=== PATIENT | male | born 1940 | race Caucasian/White ===

== ENCOUNTER 2018-11-26 08:34 | Emergency (ER) | payer OTHER ==
[2018-11-26] MEDS ORDERED: Sodium Chloride 0.9% 1,000 ML IV ONE (09:03)
[2018-11-26] MEDS ORDERED: Sodium Chloride 0.9% 2.5 ML Syringe FLUSH PRN (09:03)
[2018-11-26] MEDS ORDERED: Sodium Chloride 0.9% 10 ML Syringe FLUSH PRN (09:03)
--- NOTE | 2018-11-26 10:43 | CT ---
CT of the abdomen and pelvis without contrast. HISTORY: Pain TECHNIQUE: Axial CT images were obtained of the abdomen and pelvis without contrast. Coronal and sagittal reconstructions obtained. FINDINGS: There is a tiny 4 mm nodule within the perihilar right lower lobe. This could be followed up on subsequent imaging. The liver, spleen, adrenal glands, and pancreas appear unremarkable for noncontrast examination. The gallbladder appears normal. There is no bulky retroperitoneal lymphadenopathy. No abdominal ascites. There are no calcifications noted within the kidneys or along the courses of the ureters bilaterally. Renal cortical cysts. Aortic vascular calcifications are noted. There are borderline loops of small bowel noted however there is extensive callus and stool within the colon and rectum. The appendix is enlarged however gas-filled. There is stranding and a trace fluid within the right lower quadrant. Cecal wall thickening is noted. Moderate diverticulosis without evidence of diverticulitis. Anastomosis changes noted within the rectal region. There is no bulky pelvic lymphadenopathy. There is a trace free air noted. The urinary bladder appears normal. The visualized osseous structures appear normal. IMPRESSION: 1. The appendix is enlarged and heterogeneous small amount of free air and free fluid within the right lower quadrant. However the appendix is not fluid-filled. There is also moderate thickening of the adjacent cecal talbert. This either represents ruptured appendicitis versus an inflammatory/neoplastic process within the cecum with adjacent reactive changes and perforation. 2. Mildly prominent loops of small bowel, most likely representing an ileus versus mild partial obstruction. 3. Diverticulosis without evidence of diverticulitis.
[2018-11-26] MEDS ORDERED: Piperacillin/Tazobactam 3.375 GM in Sodium Chloride 0.9% 50 ML IV ONE (11:26)
--- NOTE | 2018-11-26 13:08 | EDM.PDOC ---
ED HPI GENERAL MEDICAL PROBLEM - General Chief Complaint: Abdominal Pain Stated Complaint: SICK Time Seen by Provider: 11/26/18 08:47 Source of Information: Reports: Patient History Limitations: Reports: No Limitations - History of Present Illness INITIAL COMMENTS - FREE TEXT/NARRATIVE: LHistory of present illness: []Patient has had 2 days of abdominal pain, vomiting and bloating. He denies any fevers, chills, diarrhea or any other pain. Patient is 4 months post op from abdominal surgery,, patient states his colon was fused with his bladder. He also states that they did a colonoscopy and biopsy 2 polyps which were benign. He is followed by Dr. Etienne at [facility]. Review of systems: As per history of present illness and below otherwise all systems reviewed and negative. Past medical history: As per history of present illness and as reviewed below otherwise noncontributory. Surgical history: As per history of present illness and as reviewed below otherwise noncontributory. Social history: No reported history of drug or alcohol abuse. Family history: As per history of present illness and as reviewed below otherwise noncontributory. Physical exam: General: Well developed, well nourished in NAD HEENT: Atraumatic, normocephalic, pupils reactive, negative for conjunctival pallor or scleral icterus, mucous membranes moist, throat clear, neck supple, nontender, trachea midline. Lungs: Clear to auscultation, breath sounds equal bilaterally, chest nontender. Heart: S1S2, regular, negative for clicks, rubs, or JVD. Abdomen: NABS, tympanitic to percussion Soft, nondistended, tender no rebound or guarding Negative for masses or hepatosplenomegaly. Negative for costovertebral tenderness. Pelvis: Stable nontender. Genitourinary: Deferred. Rectal: Deferred. Extremities: Atraumatic, negative for cords or calf pain. Neurovascular unremarkable. Neuro: Awake, alert, oriented. Cranial nerves II through XII unremarkable. Cerebellum unremarkable. Motor and sensory unremarkable throughout. Exam nonfocal. Skin:warm and dry Diagnostics: CBC, chemistry, blood cultures lipase, CT abdomen and pelvis Therapeutics: IV hydration, Zosyn ED Course: Dr. Anne was consulted and recommended transfer to Dr. Etienne Impression: Abdominal hollow viscus perforation Prescriptions: None Plan: Dr. Etienne accepts patient to transfer as a direct admit to hospital in [facility] Definitive disposition and diagnosis as appropriate pending reevaluation and review of above. lower abdominal Pain Score (Numeric/FACES): 5 - Related Data Allergies Allergy/AdvReac Type Severity Reaction Status Date / Time No Known Allergies Allergy Verified 11/26/18 08:41 Home Meds: Home Meds Aspirin 81 mg PO DAILY 11/26/18 [History] Hydrochlorothiazide [Microzide] 12.5 mg PO DAILY 11/26/18 [History] Losartan [Cozaar] 50 mg PO DAILY 11/26/18 [History] Metoprolol Tartrate 25 mg PO DAILY 11/26/18 [History] atorvaSTATin [Lipitor] 20 mg PO DAILY 11/26/18 [History] Past Medical History Cardiovascular History: Reports: High Cholesterol, Hypertension, PA Gastrointestinal History: Reports: Other (See Below) Other Gastrointestinal History: Colon Resection - Past Surgical History Cardiovascular Surgical History: Reports: Coronary Artery Bypass, Valve Replacement GI Surgical History: Reports: Colon Social & Family History - Family History Family Medical History: Noncontributory - Tobacco Use Smoking Status *Q: Never Smoker - Recreational Drug Use Recreational Drug Use: No ED ROS GENERAL - Review of Systems Review Of Systems: ROS reveals no pertinent complaints other than HPI. ED EXAM, GI/ABD - Physical Exam Exam: See Below (See history of present illness) Course - Vital Signs Last Recorded V/S: Last Vital Signs Temp 98.0 F 11/26/18 13:01 Pulse 87 11/26/18 13:01 Resp 16 11/26/18 13:01 BP 124/78 11/26/18 13:01 Pulse Ox 93 L 11/26/18 13:01 - Orders/Labs/Meds Orders: Active Orders 24 hr Category Date Time Status CULTURE BLOOD [BC] Stat Lab 11/26/18 11:51 Received CULTURE BLOOD [BC] Stat Lab 11/26/18 12:01 Received Sodium Chloride 0.9% [Saline Flush] Med 11/26/18 09:03 Active 10 ml FLUSH ASDIRECTED PRN Sodium Chloride 0.9% [Saline Flush] Med 11/26/18 09:03 Active 2.5 ml FLUSH ASDIRECTED PRN Blood Culture x2 Reflex Set [OM.PC] Stat Oth 11/26/18 11:44 Ordered Blood Culture x2 Reflex Set [OM.PC] Stat Ot 11/26/18 11:44 Ordered Saline Lock Insert [OM.PC] Stat Ot 11/26/18 09:02 Ordered Medication Orders Sodium Chloride (Saline Flush) 10 ml FLUSH ASDIRECTED PRN PRN Reason: Keep Vein Open Last Admin: 11/26/18 09:19 Dose: 10 ml Sodium Chloride (Saline Flush) 2.5 ml FLUSH ASDIRECTED PRN PRN Reason: Keep Vein Open Last Admin: 11/26/18 09:19 Dose: 2.5 ml Labs: Laboratory Tests 11/26/18 11/26/18 11/26/18 Range/Units 09:18 09:18 09:41 WBC 20.95 H (4.0-11.0) K/uL RBC 5.27 (4.50-5.90) M/uL Hgb 15.3 (13.0-17.0) g/dL Hct 44.6 (38.0-50.0) % MCV 84.6 (80.0-98.0) fL MCH 29.0 (27.0-32.0) pg MCHC 34.3 (31.0-37.0) g/dL RDW Std Deviation 43.6 (28.0-62.0) fl RDW Coeff of Trini 14 (11.0-15.0) % Plt Count 227 (150-400) K/uL MPV 10.30 (7.40-12.00) fL Neut % (Auto) 92.0 H (48.0-80.0) % Lymph % (Auto) 2.8 L (16.0-40.0) % [place] % (Auto) 5.2 (0.0-15.0) % Eos % (Auto) 0.0 (0.0-7.0) % Baso % (Auto) 0.0 (0.0-1.5) % Neut # (Auto) 19.3 H (1.4-5.7) K/uL Lymph # (Auto) 0.6 (0.6-2.4) K/uL [place] # (Auto) 1.1 H (0.0-0.8) K/uL Eos # (Auto) 0.0 (0.0-0.7) K/uL Baso # (Auto) 0.0 (0.0-0.1) K/uL Nucleated RBC % 0.0 /100WBC Nucleated RBCs # 0 K/uL Lactate 2.0 (0.20-2.00) mmol/L Sodium 138 (136-148) mmol/L Potassium 4.1 (3.5-5.1) mmol/L Chloride 101 (98-107) mmol/L Carbon Dioxide 24.0 (21.0-32.0) mmol/L BUN 37 H (7.0-18.0) mg/dL Creatinine 2.2 H (0.8-1.3) mg/dL Est Cr Clr Drug Dosing 26.29 mL/min Estimated GFR (MDRD) 29.2 ml/min Glucose 150 H (74-106) mg/dL Calcium 9.7 (8.5-10.1) mg/dL Total Bilirubin 1.0 (0.2-1.0) mg/dL AST 16 (15-37) IU/L ALT 12 L (14-63) IU/L Alkaline Phosphatase 98 (46-116) U/L Total Protein 8.5 H (6.4-8.2) g/dL Albumin 3.9 (3.4-5.0) g/dL Globulin 4.6 H (2.6-4.0) g/dL Albumin/Globulin Ratio 0.9 (0.9-1.6) Meds: Medications Generic Name Dose Route Start Last Admin Trade Name Freq PRN Reason Stop Dose Admin Sodium Chloride 10 ml 11/26/18 09:03 11/26/18 09:19 Saline Flush FLUSH 10 ml ASDIRECTED PRN Administration Keep Vein Open Sodium Chloride 2.5 ml 11/26/18 09:03 11/26/18 09:19 Saline Flush FLUSH 2.5 ml ASDIRECTED PRN Administration Keep Vein Open Discontinued Medications Generic Name Dose Route Start Last Admin Trade Name Freq PRN Reason Stop Dose Admin Sodium Chloride 1,000 mls @ 999 mls/hr 11/26/18 09:03 11/26/18 09:19 Normal Saline IV 11/26/18 10:03 999 mls/hr .Bolus ONE Administration Piperacillin Sod/Tazobactam 50 mls @ 100 mls/hr 11/26/18 11:26 11/26/18 12:06 Sod 3.375 gm/ Sodium Chloride IV 11/26/18 11:55 100 mls/hr ONETIME ONE Administration Departure - Departure Time of Disposition: 13:08 Disposition: DC/Tfer to Acute Hospital 02 Condition: Good, Fair Clinical Impression: Large bowel perforation - Discharge Information *PRESCRIPTION DRUG MONITORING PROGRAM REVIEWED*: No *COPY OF PRESCRIPTION DRUG MONITORING REPORT IN PATIENT TRINY: No Referrals: PCP,Unknown [Primary Care Provider] - Additional Instructions: The following information is given to patients seen in the emergency department who are being discharged to home. This information is to outline your options for follow-up care. We provide all patients seen in our emergency department with a follow-up referral. The need for follow-up, as well as the timing and circumstances, are variable depending upon the specifics of your emergency department visit. If you don't have a primary care physician on staff, we will provide you with a referral. We always advise you to contact your personal physician following an emergency department visit to inform them of the circumstance of the visit and for follow-up with them and/or the need for any referrals to a consulting specialist. The emergency department will also refer you to a specialist when appropriate. This referral assures that you have the opportunity for follow-up care with a specialist. All of these measure are taken in an effort to provide you with optimal care, which includes your follow-up. Under all circumstances we always encourage you to contact your private physician who remains a resource for coordinating your care. When calling for follow-up care, please make the office aware that this follow-up is from your recent emergency room visit. If for any reason you are refused follow-up, please contact the Emergency Department at and asked to speak to the emergency department charge nurse. - My Orders Last 24 Hours: My Active Orders 11/26/18 09:02 Saline Lock Insert [OM.PC] Stat 11/26/18 09:03 Sodium Chloride 0.9% [Saline Flush] 10 ml FLUSH ASDIRECTED PRN Sodium Chloride 0.9% [Saline Flush] 2.5 ml FLUSH ASDIRECTED PRN 11/26/18 11:44 Blood Culture x2 Reflex Set [OM.PC] Stat Blood Culture x2 Reflex Set [OM.PC] Stat 11/26/18 11:51 CULTURE BLOOD [BC] Stat 11/26/18 12:01 CULTURE BLOOD [BC] Stat - Assessment/Plan Last 24 Hours: My Active Orders 11/26/18 09:02 Saline Lock Insert [OM.PC] Stat 11/26/18 09:03 Sodium Chloride 0.9% [Saline Flush] 10 ml FLUSH ASDIRECTED PRN Sodium Chloride 0.9% [Saline Flush] 2.5 ml FLUSH ASDIRECTED PRN 11/26/18 11:44 Blood Culture x2 Reflex Set [OM.PC] Stat Blood Culture x2 Reflex Set [OM.PC] Stat 11/26/18 11:51 CULTURE BLOOD [BC] Stat 11/26/18 12:01 CULTURE BLOOD [BC] Stat
--- NOTE | 2018-11-26 17:09 | PCM.SN ---
- Free Text/Narrative Note: pt seen, chart reviewed; consult dictated; [id number]
--- NOTE | 2018-11-26 23:16 | HP ---
DATE OF : 1940 PRIMARY CARE PHYSICIAN: Unknown PCP HISTORY OF PRESENT ILLNESS: The patient is 78 years old gentleman seen in emergency room for 2-day history of abdominal pain, nausea, vomiting, and bloating and CAT scan was done and showed to have some spotty free air and Surgery was then consulted. The patient remarked that he had surgery done with Dr. Beaevrs about 3 months ago. Documentation not available for the time being. 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 He is not aware what is going on and he stayed in the hospital there for 2 weeks. At home, he is not feeling good for the last couple of days and with mild abdominal pain and seen in the emergency room now. The patient remarked the abdominal pain sometimes to be very bad like 8/10 on the pain scale, but otherwise in general is only mild. ALLERGIES: Please refer to nursing for details. MEDICATIONS: Please refer to nursing for details.. PAST MEDICAL HISTORY: Significant for no diabetes, ND, CVA. The patient has hypertension and coronary artery disease status post valve placement. SURGICAL HISTORY: Knee surgery and heart valve placement. FAMILY HISTORY: Noncontributory. SOCIAL HISTORY: Has some alcohol use and former smoker. PHYSICAL EXAMINATION: GENERAL: A very pleasant gentleman, sitting in edge of bed and was able to take some steps pacing in the room and looked comfortable. Of note, no pain medication given. VITAL SIGNS: Temperature 98, heart rate is 87, blood pressure 124/78, and pulse of 93. HEENT: Normocephalic and atraumatic. Sclerae anicteric. LUNGS: Clear to auscultation. HEART: Regular rate and rhythm. ABDOMEN: Soft, nondistended. No pulsating tender midline abdominal structure. Minimal tenderness on the bilateral lower quadrant. No rebound tenderness. Diminished bowel sounds. LABORATORY DATA: White count 21, H and H is 15 and 45, platelets 227. Lactate is 2, BUN is 37, creatinine is 2.2, potassium is 4.1, glucose is 150. UA is not sent. CAT scan, appendix is enlarged with air and not fluid filled and moderate thickening in adjacent cecal wall, inflammatory, worsened neoplastic process, mildly prominent loop of small bowel, diverticulosis. IMPRESSION: There is some micro-spotting of free air. With dilated appendix, highly doubt this is a perforated appendicitis and the patient does have history of perforated diverticulitis and also with history of a colovesical fistula and underwent surgery with Dr. Beavers for 6-1/2 hours per family member 3 months ago. Operative report is not available. With thickened cecal wall concerned this is more than just inflammatory or neoplastic process of the cecum. With the patient's history of heart valve replacement and history of smoking and 3 months into a big surgery, the patient probably will be on ventilator after surgery and due to the patient's interest to be serviced at a higher level facility, and at the same time family member who is a friend of mine, the daughter strongly request to have the patient transferred back to Dr. Beavers for further management. I agree with patient's clinical situation and presentation. The patient probably would benefit to be in a higher level tertiary care or academics center rather than a critical access hospital as we are. Thanks for the consult and care of this pleasant gentleman. MARIAMA / VANITA /[id number]
== END 2018-11-26 13:38 ==
LOC: MW.ED 08:34
DX: K63.1 Perforation of intestine (nontraumatic) (principal); E78.00 Pure hypercholesterolemia, unspecified; I10 Essential (primary) hypertension; I25.2 Old myocardial infarction; Z95.1 Presence of aortocoronary bypass graft; Z95.4 Presence of other heart-valve replacement; Z79.82 Long term (current) use of aspirin; Z79.899 Other long term (current) drug therapy
CPT/HCPCS: 36415; 74176; 80053; 83605; 85025; 87040; 96361; 96365; 99285; J2543; J7040; J7050

== ENCOUNTER 2021-03-26 05:10 | Emergency (ER) | payer MEDICARE ==
[2021-03-26] MEDS ORDERED: Sodium Chloride 0.9% 2.5 ML Syringe FLUSH PRN (06:03)
[2021-03-26] MEDS ORDERED: Sodium Chloride 0.9% 10 ML Syringe FLUSH PRN (06:03)
--- NOTE | 2021-03-26 06:03 | EDM.PDOC ---
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 Beavers approximately 2 and half years ago, enlarged prostate, no history of renal cell cancer, colon cancer, prostate cancer, or other cancers, who presents to the ER today secondary to noticing hematuria times this morning. Patient denies any recent fevers, shakes, chills, nausea, vomiting, diarrhea. Patient reports he has had dysuria and frequency for approximately 1 to 2 weeks. Patient denies any melena or bright red blood per rectum. Patient reports normal p.o. intake. Patient denies any bruising to his skin. Patient denies any bleeding from his gums. Patient denies any cough cold or rhinorrhea. Patient denies any recent falls or trauma. Patient denies any pain to his flanks. Patient reports that he feels fullness in his suprapubic region. Review of systems: As per history of present illness and below otherwise all systems reviewed and negative. Past medical history: As per history of present illness and as reviewed below otherwise noncontributory. Surgical history: As per history of present illness and as reviewed below otherwise noncontributory. Social history: No reported history of drug abuse. Family history: As per history of present illness and as reviewed below otherwise noncontributory. Physical exam: This patient was seen and evaluated during the 2019 SARS-CoV-2 novel coronavirus pandemic period. Community viral transmission is ongoing at time of this encounter and the emergency department is operating under pandemic response procedures. Constitutional: Patient is oriented to person, place, and time. Appears well- developed and well-nourished. No distress. HEENT: Moist mucous membranes Head: Normocephalic and atraumatic Eyes: Right eye exhibits no discharge. Left eye exhibits no discharge. No scleral icterus Neck: Normal range of motion. No tracheal deviation present. Cardiovascular: Normal rate and regular rhythm. Pulmonary: Effort normal, no respiratory distress. Abdominal: No distention Musculoskeletal: Normal range of motion Neurologic: Alert and oriented to person, place and time. Skin: [place], warm and dry. Psychiatric: Normal mood and affect. Behavior is normal. Judgment and thought content normal. Nursing note and vital signs have been reviewed Diagnostics: [] Therapeutics: [] Assessment and plan: This is an 81-year-old gentleman with a history of a colovesicular fistula approximately 2-1/2 years ago that was treated with bowel resection who presents ER today secondary to gross hematuria that started this morning. Patient reports that he does have a history significant for an enlarged prostate but is never had episodes of gross hematuria in the past. Patient is not on any anticoagulation therapy. Patient has had UTI symptoms for approximately 1 to 2 weeks prior to the hematuria. Patient denies signs or symptoms that would be consistent with renal colic. Etiology of patient's symptoms are unclear and may be related to bladder AVM, bladder cancer, complications from his colovesicular fistula repair, renal cell CA, prostate CA. Patient will have a three-way Melara catheter placed and irrigated to clear. We will obtain a CBC, CMP, INR, urinalysis. Patient will get a CT scan of his abdomen pelvis with IV contrast to further evaluate his urinary structures. At this time, the patient is clinically and hemodynamically stable. Definitive disposition and diagnosis as appropriate pending reevaluation and review of above. lower back Pain Score (Numeric/FACES): 3 - Related Data Allergies Allergy/AdvReac Type Severity Reaction Status Date / Time No Known Allergies Allergy Verified 03/26/21 05:23 Home Meds: Home Meds Aspirin 81 mg PO DAILY 11/26/18 [History] Losartan [Cozaar] 50 mg PO DAILY 11/26/18 [History] Metoprolol Tartrate 25 mg PO DAILY 11/26/18 [History] atorvaSTATin [Lipitor] 20 mg PO DAILY 11/26/18 [History] hydroCHLOROthiazide [Microzide] 12.5 mg PO DAILY 11/26/18 [History] Past Medical History HEENT History: Reports: None Cardiovascular History: Reports: High Cholesterol, Hypertension, [place] Respiratory History: Reports: None Gastrointestinal History: Reports: Other (See Below) Other Gastrointestinal History: Colon Resection Genitourinary History: Reports: None Musculoskeletal History: Reports: None Neurological History: Reports: None Psychiatric History: Reports: None Endocrine/Metabolic History: Reports: None Insulin Pump Model and Software Designer: None Hematologic History: Reports: None Immunologic History: Reports: None Oncologic (Cancer) History: Reports: None Dermatologic History: Reports: None - Infectious Disease History Infectious Disease History: Reports: None - Past Surgical History Head Surgeries/Procedures: Reports: None Cardiovascular Surgical History: Reports: Coronary Artery Bypass, Valve Replacement GI Surgical History: Reports: Colon Social & Family History - Family History Family Medical History: No Pertinent Family History - Caffeine Use Caffeine Use: Reports: None - Recreational Drug Use Recreational Drug Use: No ED ROS GENERAL - Review of Systems Review Of Systems: See Below ED EXAM, GENERAL - Physical Exam Exam: See Below Departure - Departure Disposition: DC/Tfer to Acute Hospital 02 Clinical Impression: Hyponatremia Hematuria Qualifiers: Hematuria type: gross Qualified Code(s): R31.0 - Gross hematuria - Discharge Information Referrals: PCP,None [Primary Care Provider] - Forms: ED Department Discharge <Eric Shelley - Last Filed: 03/26/21 08:36> Course - Vital Signs Last Recorded V/S: Last Vital Signs Temp 97.8 F 03/26/21 05:23 Pulse 68 03/26/21 06:45 Resp 18 03/26/21 06:45 BP 118/66 03/26/21 06:45 Pulse Ox 97 03/26/21 06:45 - Orders/Labs/Meds Orders: Active Orders 24 hr Category Date Time Status Bladder Irrigation [RC] STAT Care 03/26/21 06:05 Active Insert Melara Catheter [Insert Urinary Catheter] [OM.PC] Care 03/26/21 06:15 Ordered Q24H Urinary Catheter Assessment [RC] ASDIRECTED Care 03/26/21 06:07 Active CORONAVIRUS COVID-19 JADIEL [MOLEC] Stat Lab 03/26/21 07:38 Received Lidocaine 2% [Xylocaine 2% Viscous] Med 03/26/21 06:20 Active 15 ml PO ASDIRECTED PRN Sodium Chloride 0.9% [Saline Flush] Med 03/26/21 06:03 Active 10 ml FLUSH ASDIRECTED PRN Sodium Chloride 0.9% [Saline Flush] Med 03/26/21 06:03 Active 2.5 ml FLUSH ASDIRECTED PRN Saline Lock Insert [OM.PC] Stat Oth 03/26/21 06:03 Ordered Medication Orders Lidocaine HCl (Lidocaine 2% Viscous Solution 15 Ml Cup) 15 ml PO ASDIRECTED PRN PRN Reason: Breakthrough Pain Last Admin: 03/26/21 06:42 Dose: 15 ml Documented by: BRINDA Sodium Chloride (Sodium Chloride 0.9% 10 Ml Syringe) 10 ml FLUSH ASDIRECTED PRN PRN Reason: Keep Vein Open Last Admin: 03/26/21 07:27 Dose: 10 ml Documented by: JOVITA Sodium Chloride (Sodium Chloride 0.9% 2.5 Ml Syringe) 2.5 ml FLUSH ASDIRECTED PRN PRN Reason: Keep Vein Open Last Admin: 03/26/21 07:27 Dose: 2.5 ml Documented by: JOVITA Labs: Laboratory Tests 03/26/21 03/26/21 03/26/21 Range/Units 05:55 05:55 05:55 WBC 12.12 H (4.0-11.0) K/uL RBC 3.92 L (4.50-5.90) M/uL Hgb 11.7 L (13.0-17.0) g/dL Hct 32.2 L (38.0-50.0) % MCV 82.1 (80.0-98.0) fL MCH 29.8 (27.0-32.0) pg MCHC 36.3 (31.0-37.0) g/dL RDW Std Deviation 37.6 (28.0-62.0) fl RDW Coeff of Trini 13 (11.0-15.0) % Plt Count 250 (150-400) K/uL MPV 9.90 (7.40-12.00) fL Neut % (Auto) 79.5 (48.0-80.0) % Lymph % (Auto) 10.6 L (16.0-40.0) % [place] % (Auto) 7.0 (0.0-15.0) % Eos % (Auto) 2.7 (0.0-7.0) % Baso % (Auto) 0.2 (0.0-1.5) % Neut # (Auto) 9.6 H (1.4-5.7) K/uL Lymph # (Auto) 1.3 (0.6-2.4) K/uL [place] # (Auto) 0.9 H (0.0-0.8) K/uL Eos # (Auto) 0.3 (0.0-0.7) K/uL Baso # (Auto) 0.0 (0.0-0.1) K/uL Nucleated RBC % 0.0 /100WBC Nucleated RBCs # 0 K/uL INR 1.05 APTT 28.5 (18.6-31.3) SEC Sodium 122 L (136-148) mmol/L Potassium 3.8 (3.5-5.1) mmol/L Chloride 89 L (98-107) mmol/L Carbon Dioxide 22.6 (21.0-32.0) mmol/L BUN 16 (7.0-18.0) mg/dL Creatinine 1.5 H (0.8-1.3) mg/dL Est Cr Clr Drug Dosing 36.72 mL/min Estimated GFR (MDRD) 45.0 ml/min Glucose 114 H (74-106) mg/dL Calcium 7.8 L (8.5-10.1) mg/dL Total Bilirubin 0.7 (0.2-1.0) mg/dL AST 22 (15-37) IU/L ALT 18 (14-63) IU/L Alkaline Phosphatase 98 (46-116) U/L Total Protein 6.8 (6.4-8.2) g/dL Albumin 3.7 (3.4-5.0) g/dL Globulin 3.1 (2.6-4.0) g/dL Albumin/Globulin Ratio 1.2 (0.9-1.6) Urine Color Urine Appearance Urine pH (5.0-8.0) Ur Specific [place] (1.001-1.035) Urine Protein (NEGATIVE) mg/dL Urine Glucose (UA) (NEGATIVE) mg/dL Urine Ketones (NEGATIVE) mg/dL Urine Occult Blood (NEGATIVE) Urine Nitrite (NEGATIVE) Urine Bilirubin (NEGATIVE) Urine Urobilinogen (<2.0) EU/dL Ur Leukocyte Esterase (NEGATIVE) Urine RBC (0-2/HPF) Urine WBC (0-5/HPF) Ur Epithelial Cells (NONE-FEW) Urine Bacteria (NEGATIVE) 03/26/21 Range/Units 06:30 WBC (4.0-11.0) K/uL RBC (4.50-5.90) M/uL Hgb (13.0-17.0) g/dL Hct (38.0-50.0) % MCV (80.0-98.0) fL MCH (27.0-32.0) pg MCHC (31.0-37.0) g/dL RDW Std Deviation (28.0-62.0) fl RDW Coeff of Trini (11.0-15.0) % Plt Count (150-400) K/uL MPV (7.40-12.00) fL Neut % (Auto) (48.0-80.0) % Lymph % (Auto) (16.0-40.0) % [place] % (Auto) (0.0-15.0) % Eos % (Auto) (0.0-7.0) % Baso % (Auto) (0.0-1.5) % Neut # (Auto) (1.4-5.7) K/uL Lymph # (Auto) (0.6-2.4) K/uL [place] # (Auto) (0.0-0.8) K/uL Eos # (Auto) (0.0-0.7) K/uL Baso # (Auto) (0.0-0.1) K/uL Nucleated RBC % /100WBC Nucleated RBCs # K/uL INR APTT (18.6-31.3) SEC Sodium (136-148) mmol/L Potassium (3.5-5.1) mmol/L Chloride (98-107) mmol/L Carbon Dioxide (21.0-32.0) mmol/L BUN (7.0-18.0) mg/dL Creatinine (0.8-1.3) mg/dL Est Cr Clr Drug Dosing mL/min Estimated GFR (MDRD) ml/min Glucose (74-106) mg/dL Calcium (8.5-10.1) mg/dL Total Bilirubin (0.2-1.0) mg/dL AST (15-37) IU/L ALT (14-63) IU/L Alkaline Phosphatase (46-116) U/L Total Protein (6.4-8.2) g/dL Albumin (3.4-5.0) g/dL Globulin (2.6-4.0) g/dL Albumin/Globulin Ratio (0.9-1.6) Urine Color RED Urine Appearance CLOUDY Urine pH 7.0 (5.0-8.0) Ur Specific [place] 1.020 (1.001-1.035) Urine Protein 100 H (NEGATIVE) mg/dL Urine Glucose (UA) NEGATIVE (NEGATIVE) mg/dL Urine Ketones NEGATIVE (NEGATIVE) mg/dL Urine Occult Blood LARGE H (NEGATIVE) Urine Nitrite NEGATIVE (NEGATIVE) Urine Bilirubin NEGATIVE (NEGATIVE) Urine Urobilinogen 0.2 (<2.0) EU/dL Ur Leukocyte Esterase SMALL H (NEGATIVE) Urine RBC TOO NUMEROUS TO CT (0-2/HPF) Urine WBC 0-2 (0-5/HPF) Ur Epithelial Cells RARE (NONE-FEW) Urine Bacteria FEW (NEGATIVE) Meds: Medications Generic Name Dose Route Start Last Admin Trade Name Macy PRN Reason Stop Dose Admin Lidocaine HCl 15 ml 03/26/21 06:20 03/26/21 06:42 Lidocaine 2% Viscous Solution 15 Ml Cup PO 15 ml ASDIRECTED PRN Administration Breakthrough Pain Sodium Chloride 10 ml 03/26/21 06:03 03/26/21 07:27 Sodium Chloride 0.9% 10 Ml Syringe FLUSH 10 ml ASDIRECTED PRN Administration Keep Vein Open Sodium Chloride 2.5 ml 03/26/21 06:03 03/26/21 07:27 Sodium Chloride 0.9% 2.5 Ml Syringe FLUSH 2.5 ml ASDIRECTED PRN Administration Keep Vein Open Discontinued Medications Generic Name Dose Route Start Last Admin Trade Name Macy PRN Reason Stop Dose Admin Sodium Chloride 1,000 mls @ 999 mls/hr 03/26/21 06:51 03/26/21 07:27 Normal Saline IV 03/26/21 07:51 999 mls/hr .Bolus ONE Administration Iopamidol 60 ml 03/26/21 07:13 03/26/21 07:13 Iopamidol 755 Mg/Ml 100 Ml Bottle IVPUSH 03/26/21 07:14 60 ml ONETIME STA Administration Lidocaine HCl Confirm 03/26/21 06:20 03/26/21 06:33 Lidocaine 2% Viscous Solution 15 Ml Cup Administered 03/26/21 06:21 Not Given Dose 15 ml .ROUTE .STK-MED ONE - Re-Assessments/Exams Free Text/Narrative Re-Assessment/Exam: 03/26/21 07:52 Labs show hyponatremia, Cr 1.5, no evidence UTI. Three-way catheter placed for irrigation. Will reach out to transfer center for transfer of care to facility with urology coverage for management of hyponatremia, gross hematuria, and urinary retention. I did try [facility] who unfortunately doesn't have inpatient urology coverage. 03/26/21 08:30 Dr. Sims agrees to consult (urology, [place]). Will reach out to ED physician for ED-ED transfer. 03/26/21 08:35 Dr. Friend ED physician agrees to accept Departure - Departure Time of Disposition: 08:36 Condition: Good Sepsis Event Note (ED) - Focused Exam Vital Signs: Vital Signs Temp Pulse Resp BP Pulse Ox 03/26/21 06:45 68 18 118/66 97 03/26/21 05:23 97.8 F 78 18 152/76 H 97
[2021-03-26] MEDS ORDERED: Lidocaine 2% Viscous Solution 15 ML Cup PO PRN (06:20)
[2021-03-26] MEDS ORDERED: Lidocaine 2% Viscous Solution 15 ML Cup ONE (06:20)
[2021-03-26 06:33] LABS: CARBON DIOXIDE,CO2 22.6 mmol/L (21.0-32.0); POTASSIUM,K 3.8 mmol/L (3.5-5.1)
[2021-03-26] MEDS ORDERED: Sodium Chloride 0.9% 1,000 ML IV ONE (06:51)
[2021-03-26] MEDS ORDERED: Iopamidol 755 Mg/ML 100 ML Bottle IVPUSH STA (07:13)
--- NOTE | 2021-03-26 07:38 | CT ---
HISTORY: Gross hematuria. Prior are colovesical fistula. COMPARISON: 11/26/2018. TECHNIQUE: CT of the abdomen and pelvis. 60 cc of [id number] IV. Coronal/sagittal reconstruction images. FINDINGS: Lung bases: Partially visualized sternotomy changes on the darkroom technician image. There is no pleural or pericardial effusion. There is no acute airspace disease. Interstitial type opacities are present at the right lung base, likely related to fibrosis. There is no basilar pneumothorax. The findings are seen at the contralateral left lung base. Abdomen/pelvis: The liver morphology is non cirrhotic. There is no perihepatic ascites. No radiopaque gallstone. No splenomegaly. No adrenal mass. Benign left renal cyst. There is a larger right renal cyst, which measures 5.5 cm, lower pole, right kidney, image 75. There is no pancreatic mass or glandular atrophy. The anterior para renal space is clear. There is a Melara catheter in the urinary bladder, with hyperdensities within the bladder, consistent with emerge. There is fat stranding in the perivesical fat/extraperitoneal space of [place]. Anastomotic sutures are present about the lower sigmoid colon. There is extensive diverticulosis. There is no evidence for diverticulitis. There is no mural thickening. There is no mucosal hyper enhancement. Anastomotic sutures are also present in the cecum. There is no inguinal or pelvic sidewall lymphadenopathy. Degenerative calcific plaque and an abdominal aorta which appears aneurysmal, measuring up to 36 mm in transverse dimension. This contains mural thrombus and calcific plaque. The celiac axis, SMA, and JU are patent. The bone windows demonstrate degenerative arthrosis of the symphysis pubis. Degenerative disc disease in the lumbar spine, with endplate sclerosis and osteophytic spurring. There is a compression deformity at L2, which is new from 11/26/2018. Suggest correlation with physical exam findings. IMPRESSION: 1. Hyperdensity within the lumen of the urinary bladder, with fat stranding in the extraperitoneal space of [place]/perivesical fat. 2. This is consistent with the provided history of gross hematuria. Suggest correlation with direct visualization/cystoscopy. 3. There is no obstructive urolith, solid renal mass, delayed nephrogram, or perinephric fluid collection. 4. Colonic diverticulosis, but no evidence on CT for diverticulitis. 5. No bowel obstruction, pneumoperitoneum, or drainable fluid collection. Please note that all CT scans at this facility use dose modulation, iterative reconstruction, and/or weight-based dosing when appropriate to reduce radiation dose to as low as reasonably achievable. Dictated by Robert Larson MD @ 03/26/2021 7:36:18 AM (Electronically Signed)
== END 2021-03-26 09:36 ==
LOC: MW.ED 05:10
DX: R31.0 Gross hematuria (principal); E87.1 Hypo-osmolality and hyponatremia; E78.00 Pure hypercholesterolemia, unspecified; I10 Essential (primary) hypertension; I25.2 Old myocardial infarction; Z79.82 Long term (current) use of aspirin; Z79.899 Other long term (current) drug therapy
CPT/HCPCS: 51702; 74177; 80053; 81001; 85025; 85610; 85730; 99284; A9270; J7030; Q9967; U0002

== ENCOUNTER 2022-06-29 15:56 | Emergency (ER) | payer OTHER ==
[2022-06-29] MEDS ORDERED: Morphine 4 MG/ML Syringe IVPUSH ONE ×2 (17:10→20:35)
[2022-06-29] MEDS ORDERED: Lidocaine 5% 700 MG Patch TOP ONE (17:10)
[2022-06-29 17:58] LABS: CARBON DIOXIDE,CO2 29.6 mmol/L (21.0-32.0); POTASSIUM,K 3.6 mmol/L (3.5-5.1)
[2022-06-29] MEDS ORDERED: Lactated Ringers 1,000 ML IV ONE (18:07)
[2022-06-29] MEDS ORDERED: Morphine 4 MG/ML Syringe ONE (20:37)
[2022-06-29] MEDS ORDERED: Orphenadrine 60 MG/2 ML Inj IV ONE (20:53)
[2022-06-29] MEDS ORDERED: HYDROmorphone 1 MG/ML Syringe IVPUSH ONE (20:53)
[2022-06-29] MEDS ORDERED: Iopamidol 755 MG/ML 500 ML Multipack Bottle IVPUSH STA (22:12)
== END 2022-06-30 00:09 | disposition home or self-care (01) ==
LOC: MW.ED 15:56
DX: M54.6 Pain in thoracic spine (principal); E78.00 Pure hypercholesterolemia, unspecified; I10 Essential (primary) hypertension; I25.2 Old myocardial infarction; Z79.82 Long term (current) use of aspirin; Z79.899 Other long term (current) drug therapy
CPT/HCPCS: 36415; 71275; 74175; 80053; 84484; 85025; 85610; 85730; 96361; 96374; 96375; 96376; 99284; A9270; J1170; J2270; J2360; J7120; Q9967

== ENCOUNTER 2023-03-10 12:51 | Inpatient (IN) | payer OTHER, MEDICARE ==
[2023-03-10] MEDS ORDERED: Sodium Chloride 0.9% 2.5 ML Syringe FLUSH PRN ×2 (13:05→18:10)
[2023-03-10] MEDS ORDERED: Sodium Chloride 0.9% 10 ML Syringe FLUSH PRN ×2 (13:05→18:10)
[2023-03-10] MEDS ORDERED: Sodium Chloride 0.9% 1,000 ML IV ONE (13:22)
[2023-03-10] MEDS ORDERED: Ondansetron 4 MG/2 ML SDV IVPUSH ONE ×2 (13:22→14:11)
[2023-03-10 13:48] LABS: BASOPHILS PERCENT AUTO 0.1 % (0.0-1.5); EOSINOPHILS PERCENT AUTO 0.1 % (0.0-7.0); HEMATOCRIT 40.1 % (38.0-50.0); HEMOGLOBIN 14.3 g/dL (13.0-17.0); LYMPHOCYTES ABSOLUTE AUTO 0.8 K/uL (0.6-2.4); LYMPHOCYTES PERCENT AUTO 4.7 % (16.0-40.0); MEAN CORPUSCULAR HEMOGLOBIN 30.4 pg (27.0-32.0); MEAN CORPUSCULAR HGB CONC 35.7 g/dL (31.0-37.0); MEAN CORPUSCULAR VOLUME 85.1 fL (80.0-98.0); MONOCYTES ABSOLUTE AUTO 0.5 K/uL (0.0-0.8); MONOCYTES PERCENT AUTO 2.9 % (0.0-15.0); NEUTROPHILS ABSOLUTE AUTO 16.4 K/uL (1.4-5.7); NEUTROPHILS PERCENT AUTO 92.2 % (48.0-80.0); NRBC ABSOLUTE 0 K/uL; PLATELET COUNT,PLT 311 K/uL (150-400); RED BLOOD CELL COUNT 4.71 M/uL (4.50-5.90); WHITE BLOOD CELL COUNT,WBC 17.79 K/uL (4.0-11.0)
[2023-03-10 14:16] LABS: LACTIC ACID 1.6 mmol/L (0.4-2.0)
[2023-03-10 14:23] LABS: A/G RATIO 1.1 (0.9-1.6); ALANINE AMINOTRANSFERASE,ALT 19 IU/L (14-63); ALBUMIN 4.3 g/dL (3.4-5.0); ALKALINE PHOSPHATASE 92 U/L (46-116); ASPARTATE AMNIOTRANSFERASE,AST 34 IU/L (15-37); BILIRUBIN TOTAL 0.7 mg/dL (0.2-1.0); BLOOD UREA NITROGEN,BUN 23 mg/dL (7.0-18.0); CALCIUM 8.7 mg/dL (8.5-10.1); CARBON DIOXIDE,CO2 23.7 mmol/L (21.0-32.0); CHLORIDE,CL 92 mmol/L (98-107); CREATININE 2.5 mg/dL (0.8-1.3); GLUCOSE RANDOM 134 mg/dL (74-106); INR 1.01 (0.86-1.11); MAGNESIUM 2.8 mg/dL (1.8-2.4); POTASSIUM,K 4.2 mmol/L (3.5-5.1); PROTEIN TOTAL,TP 8.2 g/dL (6.4-8.2); SODIUM,NA 127 mmol/L (136-148); TSH ULTRASENSITIVE 0.95 uIU/mL (0.36-3.74)
[2023-03-10 14:24] LABS: ESTIMATED GFR 25 mL/min (>60); ETHANOL BLOOD MEDICAL < 3.0 mg/dL
[2023-03-10 15:44] LABS: APPEARANCE,URINE CLEAR; BILIRUBIN,URINE NEGATIVE (NEGATIVE); COLOR,URINE YELLOW; GLUCOSE,URINE NEGATIVE (NEGATIVE); KETONES,URINE NEGATIVE (NEGATIVE); LEUKOCYTE ESTERASE,URINE NEGATIVE (NEGATIVE); NITRITE,URINE NEGATIVE (NEGATIVE); OCCULT BLOOD,URINE MODERATE (NEGATIVE); PROTEIN,URINE TRACE mg/dL (NEGATIVE); UROBILINOGEN,URINE 0.2 EU/dL (<2.0)
[2023-03-10 15:56] LABS: BACTERIA,URINE FEW (NEGATIVE); EPITHELIAL CELLS,URINE FEW (NONE-FEW); RBC,URINE 15-25 (0-2/HPF); WBC,URINE 30-40 (0-5/HPF)
[2023-03-10] MEDS ORDERED: cefTRIAXone 1 GM in Sodium Chloride 0.9% 50 ML IV ONE (16:02)
[2023-03-10] MEDS ORDERED: Acetaminophen 325 MG Tab PO PRN (18:10)
[2023-03-10] MEDS ORDERED: Polyethylene Glycol 3350 Powder 17 GM Packet PO PRN (18:10)
[2023-03-10] MEDS ORDERED: Albuterol/Ipratropium 3.0-0.5 MG/3 ML Neb Soln NEB PRN (18:10)
[2023-03-10] MEDS ORDERED: Sodium Chloride 0.9% 20 ML SDV IV PRN (18:10)
[2023-03-10] MEDS ORDERED: Heparin Sodium 5,000 Units/ML Vial SUBCUT SCH (18:15)
[2023-03-10] MEDS ORDERED: Lactated Ringers 1,000 ML IV SCH (18:15)
[2023-03-10] MEDS ORDERED: Acetaminophen/oxyCODONE 325-5 MG Tab PO PRN (18:15)
[2023-03-10] MEDS: Heparin Sodium 5,000 Units/ML Vial SUBCUT SCH (18:51)
[2023-03-10] MEDS: Sodium Chloride 0.9% 1,000 ML IV SCH (18:59)
[2023-03-10] MEDS ORDERED: cefTRIAXone 2 GM in Sodium Chloride 0.9% 50 ML IV SCH (19:00)
[2023-03-10 21:35] LABS: CALCIUM 8.5 mg/dL (8.5-10.1); CARBON DIOXIDE,CO2 23.4 mmol/L (21.0-32.0); CREATININE 2.3 mg/dL (0.8-1.3); EST CRCL DRUG DOSING (CG) 23.15 mL/min
[2023-03-10] MEDS: Ondansetron 4 MG/2 ML SDV IVPUSH PRN (21:59)
[2023-03-11] MEDS: Sodium Chloride 0.9% 1,000 ML IV SCH (03:50)
[2023-03-11] MEDS: Ondansetron 4 MG/2 ML SDV IVPUSH PRN (03:59)
[2023-03-11] MEDS: Heparin Sodium 5,000 Units/ML Vial SUBCUT SCH (06:00)
[2023-03-11 06:13] LABS: BASOPHILS PERCENT AUTO 0.1 % (0.0-1.5); HEMATOCRIT 37.8 % (38.0-50.0); LYMPHOCYTES ABSOLUTE AUTO 0.6 K/uL (0.6-2.4); LYMPHOCYTES PERCENT AUTO 2.9 % (16.0-40.0); MEAN CORPUSCULAR HEMOGLOBIN 29.9 pg (27.0-32.0); MEAN CORPUSCULAR HGB CONC 34.4 g/dL (31.0-37.0); MEAN CORPUSCULAR VOLUME 86.9 fL (80.0-98.0); MONOCYTES ABSOLUTE AUTO 0.7 K/uL (0.0-0.8); MONOCYTES PERCENT AUTO 3.3 % (0.0-15.0); NEUTROPHILS ABSOLUTE AUTO 19.9 K/uL (1.4-5.7); NEUTROPHILS PERCENT AUTO 93.7 % (48.0-80.0); NRBC ABSOLUTE 0 K/uL; PLATELET COUNT,PLT 260 K/uL (150-400); RED BLOOD CELL COUNT 4.35 M/uL (4.50-5.90)
[2023-03-11 06:32] LABS: CALCIUM 8.5 mg/dL (8.5-10.1); CARBON DIOXIDE,CO2 22.5 mmol/L (21.0-32.0); CREATININE 2.1 mg/dL (0.8-1.3); EST CRCL DRUG DOSING (CG) 25.36 mL/min; MAGNESIUM 2.3 mg/dL (1.8-2.4)
[2023-03-11] MEDS ORDERED: Metoprolol Tartrate 50 MG Tab PO SCH (09:00)
[2023-03-11] MEDS: atorvaSTATin 40 MG Tab PO SCH (09:12)
[2023-03-11] MEDS: Clopidogrel 75 MG Tab PO SCH (09:13)
[2023-03-11] MEDS: Aspirin 81 MG Tab.Chew PO SCH (10:26)
[2023-03-11] MEDS ORDERED: Hydrochlorothiazide 12.5 MG Cap PO SCH (16:00)
[2023-03-11 18:33] LABS: BASOPHILS PERCENT AUTO 0.2 % (0.0-1.5); EOSINOPHILS PERCENT AUTO 0.2 % (0.0-7.0); HEMATOCRIT 36.3 % (38.0-50.0); HEMOGLOBIN 12.7 g/dL (13.0-17.0); LYMPHOCYTES ABSOLUTE AUTO 1.2 K/uL (0.6-2.4); LYMPHOCYTES PERCENT AUTO 5.1 % (16.0-40.0); MEAN CORPUSCULAR HEMOGLOBIN 30.5 pg (27.0-32.0); MEAN CORPUSCULAR VOLUME 87.3 fL (80.0-98.0); MONOCYTES ABSOLUTE AUTO 1.6 K/uL (0.0-0.8); MONOCYTES PERCENT AUTO 6.7 % (0.0-15.0); NEUTROPHILS ABSOLUTE AUTO 20.9 K/uL (1.4-5.7); NEUTROPHILS PERCENT AUTO 87.8 % (48.0-80.0); NRBC ABSOLUTE 0 K/uL; PLATELET COUNT,PLT 270 K/uL (150-400); RED BLOOD CELL COUNT 4.16 M/uL (4.50-5.90); WHITE BLOOD CELL COUNT,WBC 23.72 K/uL (4.0-11.0)
[2023-03-11] MEDS ORDERED: cefTRIAXone 2 GM in Sodium Chloride 0.9% 50 ML IV SCH (19:00)
[2023-03-11] MEDS ORDERED: Piperacillin/Tazobactam 3.375 GM in Sodium Chloride 0.9% 100 ML IV SCH (19:15)
[2023-03-11] MEDS: Piperacillin/Tazobactam 4.5 GM in Sodium Chloride 0.9% 100 ML IV SCH (19:52)
[2023-03-11] MEDS ORDERED: VANCOmycin 1.5 GM/300 ML 1.5 GM in Premix Bag 1 BAG IV ONE (20:00)
[2023-03-12] MEDS: Piperacillin/Tazobactam 4.5 GM in Sodium Chloride 0.9% 100 ML IV SCH (03:04)
[2023-03-12 05:51] LABS: BASOPHILS ABSOLUTE AUTO 0.1 K/uL (0.0-0.1); BASOPHILS PERCENT AUTO 0.3 % (0.0-1.5); EOSINOPHILS ABSOLUTE AUTO 0.1 K/uL (0.0-0.7); EOSINOPHILS PERCENT AUTO 0.7 % (0.0-7.0); HEMATOCRIT 36.6 % (38.0-50.0); HEMOGLOBIN 12.4 g/dL (13.0-17.0); LYMPHOCYTES ABSOLUTE AUTO 1.1 K/uL (0.6-2.4); LYMPHOCYTES PERCENT AUTO 5.2 % (16.0-40.0); MEAN CORPUSCULAR HEMOGLOBIN 29.5 pg (27.0-32.0); MEAN CORPUSCULAR HGB CONC 33.9 g/dL (31.0-37.0); MEAN CORPUSCULAR VOLUME 87.1 fL (80.0-98.0); MONOCYTES ABSOLUTE AUTO 1.2 K/uL (0.0-0.8); MONOCYTES PERCENT AUTO 5.5 % (0.0-15.0); NEUTROPHILS ABSOLUTE AUTO 18.8 K/uL (1.4-5.7); NEUTROPHILS PERCENT AUTO 88.3 % (48.0-80.0); NRBC ABSOLUTE 0 K/uL; PLATELET COUNT,PLT 260 K/uL (150-400); WHITE BLOOD CELL COUNT,WBC 21.31 K/uL (4.0-11.0)
[2023-03-12 06:18] LABS: CALCIUM 8.3 mg/dL (8.5-10.1); CARBON DIOXIDE,CO2 22.2 mmol/L (21.0-32.0); CREATININE 1.7 mg/dL (0.8-1.3); EST CRCL DRUG DOSING (CG) 31.32 mL/min
[2023-03-12] MEDS ORDERED: Acetaminophen/oxyCODONE 325-5 MG Tab PO PRN (07:00)
[2023-03-12] MEDS: Clopidogrel 75 MG Tab PO SCH (08:03)
[2023-03-12] MEDS: Losartan 50 MG Tab PO SCH (08:04)
[2023-03-12] MEDS: Aspirin 81 MG Tab.Chew PO SCH (08:05)
[2023-03-12] MEDS: atorvaSTATin 40 MG Tab PO SCH (08:05)
[2023-03-12] MEDS: Heparin Sodium 5,000 Units/ML Vial SUBCUT SCH ×2 (08:07→20:23)
[2023-03-12] MEDS: Piperacillin/Tazobactam 2.25 GM in Sodium Chloride 0.9% 50 ML IV SCH ×3 (11:02→22:45)
[2023-03-13] MEDS: Piperacillin/Tazobactam 2.25 GM in Sodium Chloride 0.9% 50 ML IV SCH (04:14)
[2023-03-13 05:38] LABS: BASOPHILS ABSOLUTE AUTO 0.1 K/uL (0.0-0.1); BASOPHILS PERCENT AUTO 0.4 % (0.0-1.5); EOSINOPHILS ABSOLUTE AUTO 0.2 K/uL (0.0-0.7); EOSINOPHILS PERCENT AUTO 1.6 % (0.0-7.0); HEMATOCRIT 34.8 % (38.0-50.0); HEMOGLOBIN 12.2 g/dL (13.0-17.0); LYMPHOCYTES ABSOLUTE AUTO 1.2 K/uL (0.6-2.4); LYMPHOCYTES PERCENT AUTO 8.2 % (16.0-40.0); MEAN CORPUSCULAR HEMOGLOBIN 30.2 pg (27.0-32.0); MEAN CORPUSCULAR HGB CONC 35.1 g/dL (31.0-37.0); MEAN CORPUSCULAR VOLUME 86.1 fL (80.0-98.0); MONOCYTES PERCENT AUTO 6.8 % (0.0-15.0); NEUTROPHILS ABSOLUTE AUTO 11.8 K/uL (1.4-5.7); NRBC ABSOLUTE 0 K/uL; PLATELET COUNT,PLT 243 K/uL (150-400); RED BLOOD CELL COUNT 4.04 M/uL (4.50-5.90); WHITE BLOOD CELL COUNT,WBC 14.26 K/uL (4.0-11.0)
[2023-03-13 06:02] LABS: CALCIUM 8.3 mg/dL (8.5-10.1); CREATININE 1.5 mg/dL (0.8-1.3); EST CRCL DRUG DOSING (CG) 35.5 mL/min; POTASSIUM,K 3.6 mmol/L (3.5-5.1)
[2023-03-13] MEDS: Heparin Sodium 5,000 Units/ML Vial SUBCUT SCH (07:57)
[2023-03-13] MEDS: Losartan 50 MG Tab PO SCH (08:00)
[2023-03-13] MEDS: atorvaSTATin 40 MG Tab PO SCH (08:00)
[2023-03-13] MEDS: Aspirin 81 MG Tab.Chew PO SCH (08:00)
[2023-03-13] MEDS: Clopidogrel 75 MG Tab PO SCH (08:02)
[2023-03-13] MEDS ORDERED: Finasteride 5 MG Tab PO SCH (09:00)
[2023-03-13] MEDS ORDERED: Ciprofloxacin 500 MG Tab PO SCH (09:15)
[2023-03-13] MEDS ORDERED: Piperacillin/Tazobactam 3.375 GM in Sodium Chloride 0.9% 100 ML IV SCH (11:00)
[2023-03-13] MEDS ORDERED: VANCOmycin 1.75 GM/350 ML 1.75 GM in Premix Bag 1 BAG IV SCH (12:00)
== END 2023-03-13 11:00 | disposition home health service (06) | DRG 690 ==
LOC: MW.ED 12:51 → MW.MS 17:04
PROVIDERS: ADMIT Family Medicine; ATTEND Family Medicine
DX: N10 Acute pyelonephritis (principal); N28.9 Disorder of kidney and ureter, unspecified; N30.01 Acute cystitis with hematuria; E86.0 Dehydration; I10 Essential (primary) hypertension; E87.1 Hypo-osmolality and hyponatremia; N17.9 Acute kidney failure, unspecified; N18.9 Chronic kidney disease, unspecified; Z95.4 Presence of other heart-valve replacement; I12.9 Hypertensive chronic kidney disease with stage 1 through stage 4 chronic kidney disease, or unspecified chronic kidney disease; I25.10 Atherosclerotic heart disease of native coronary artery without angina pectoris; E78.00 Pure hypercholesterolemia, unspecified; I25.2 Old myocardial infarction; Z95.1 Presence of aortocoronary bypass graft; Z98.890 Other specified postprocedural states; Z95.2 Presence of prosthetic heart valve; Z79.02 Long term (current) use of antithrombotics/antiplatelets; Z79.82 Long term (current) use of aspirin; Z79.899 Other long term (current) drug therapy; Z68.28 Body mass index [BMI] 28.0-28.9, adult
CPT/HCPCS: 36415; 70450; 71045; 74176; 80053; 80307; 81001; 82140; 83605; 83735; 84443; 84484; 85025; 85610; 87040 ×2; 87086; 93005; 96361; 96365; 96375; 96376; 99285; J0696; J2405 ×2; J3490 ×2; J7030; 80048; 80202; 93010; 97161-GP; A9270-GY; J1644; J2543; J3370; J7050

== ENCOUNTER 2023-08-31 11:40 | Inpatient (IN) | payer OTHER, MEDICARE ==
[2023-08-31] MEDS: Sodium Chloride 0.9% 1,000 ML IV STA ×2 (12:53→13:53)
[2023-08-31] MEDS: Piperacillin/Tazobactam 4.5 GM in Sodium Chloride 0.9% 100 ML IV ONE (13:04)
[2023-08-31 13:17] LABS: BASOPHILS ABSOLUTE AUTO 0.03 K/uL (0.00-0.20); BASOPHILS PERCENT AUTO 0.2 % (0.0-1.0); EOSINOPHILS ABSOLUTE AUTO 0.03 K/uL (0.00-0.45); EOSINOPHILS PERCENT AUTO 0.2 % (0.0-6.0); HEMATOCRIT 32.7 % (42.0-52.0); HEMOGLOBIN 11.8 g/dL (14.0-18.0); IMMATURE GRAN PERCENT AUTO 0.5 % (0.0-0.4); LYMPHOCYTES ABSOLUTE AUTO 1.03 K/uL (1.00-4.80); LYMPHOCYTES PERCENT AUTO 5.2 % (24.0-44.0); MEAN CORPUSCULAR HEMOGLOBIN 30.8 pg (28.0-32.0); MEAN CORPUSCULAR HGB CONC 36.1 g/dL (32.0-36.0); MEAN CORPUSCULAR VOLUME 85.4 fL (83.0-99.0); MEAN PLATELET VOLUME 9.3 fL (9.4-12.4); MONOCYTES ABSOLUTE AUTO 1.44 K/uL (0.00-0.80); MONOCYTES PERCENT AUTO 7.3 % (0.0-8.0); NEUTROPHILS ABSOLUTE AUTO 17.03 K/uL (1.80-7.70); NEUTROPHILS PERCENT AUTO 86.6 % (41.0-71.0); PLATELET COUNT,PLT 314 K/uL (150-400); RED BLOOD CELL COUNT 3.83 M/uL (4.52-5.90); WHITE BLOOD CELL COUNT,WBC 19.66 K/uL (3.9-11.3)
[2023-08-31 13:50] LABS: A/G RATIO 1.2 (0.9-1.6); ALBUMIN 3.6 g/dL (3.4-5.0); BILIRUBIN TOTAL 0.9 mg/dL (0.2-1.0); CALCIUM 8.6 mg/dL (8.5-10.1); CARBON DIOXIDE,CO2 22.9 mmol/L (21.0-32.0); CREATININE 2.7 mg/dL (0.8-1.3); EST CRCL DRUG DOSING (CG) 19.72 mL/min; POTASSIUM,K 3.4 mmol/L (3.5-5.1); PROTEIN TOTAL,TP 6.7 g/dL (6.4-8.2); TSH ULTRASENSITIVE 1.92 uIU/mL (0.36-3.74)
[2023-08-31] MEDS: VANCOmycin 1.5 GM/300 ML 1.5 GM in Premix Bag 1 BAG IV ONE (13:53)
[2023-08-31] MEDS: Sodium Chloride 0.9% 500 ML IV ONE (15:37)
[2023-08-31 16:53] LABS: LACTIC ACID 1.3 mmol/L (0.4-2.0)
[2023-08-31] MEDS ORDERED: Ondansetron 4 MG/2 ML SDV IVPUSH PRN (17:02)
[2023-08-31] MEDS ORDERED: Acetaminophen 325 MG Tab PO PRN (17:02)
[2023-08-31] MEDS: Ondansetron 4 MG/2 ML SDV IVPUSH ONE (17:09)
[2023-08-31 17:40] LABS: BILIRUBIN,URINE NEGATIVE (NEGATIVE); COLOR,URINE YELLOW; GLUCOSE,URINE NEGATIVE (NEGATIVE); KETONES,URINE NEGATIVE (NEGATIVE); LEUKOCYTE ESTERASE,URINE TRACE (NEGATIVE); NITRITE,URINE NEGATIVE (NEGATIVE); OCCULT BLOOD,URINE SMALL (NEGATIVE); PROTEIN,URINE NEGATIVE (NEGATIVE); UROBILINOGEN,URINE 0.2 EU/dL (<2.0)
[2023-08-31 17:43] LABS: APPEARANCE,URINE HAZY
[2023-08-31 17:49] LABS: BACTERIA,URINE 2+ (NEGATIVE); EPITHELIAL CELLS,URINE OCCASIONAL (NONE-FEW); MUCUS,URINE LIGHT (NONE-MOD); WBC,URINE 0-2 (0-5/HPF)
[2023-08-31] MEDS: Pantoprazole 40 MG in Sodium Chloride 0.9% 10 ML IVPUSH SCH (18:25)
[2023-08-31] MEDS: Enoxaparin 30 MG/0.3 ML Syringe SUBCUT SCH (18:25)
[2023-08-31] MEDS: Sodium Chloride 0.9% 1,000 ML IV SCH (18:26)
[2023-08-31] MEDS: Cefepime 2 GM in Sodium Chloride 0.9% 50 ML IV SCH (20:07)
[2023-08-31] MEDS: Potassium Chloride 20 MEQ Tab.ER PO ONE (21:52)
[2023-09-01 06:27] LABS: BASOPHILS ABSOLUTE AUTO 0.03 K/uL (0.00-0.20); BASOPHILS PERCENT AUTO 0.2 % (0.0-1.0); EOSINOPHILS ABSOLUTE AUTO 0.08 K/uL (0.00-0.45); EOSINOPHILS PERCENT AUTO 0.4 % (0.0-6.0); HEMATOCRIT 28.2 % (42.0-52.0); HEMOGLOBIN 9.9 g/dL (14.0-18.0); IMMATURE GRAN ABSOLUTE AUTO 0.13 K/uL (0.00-0.05); IMMATURE GRAN PERCENT AUTO 0.7 % (0.0-0.4); LYMPHOCYTES PERCENT AUTO 6.2 % (24.0-44.0); MEAN CORPUSCULAR HGB CONC 35.1 g/dL (32.0-36.0); MEAN CORPUSCULAR VOLUME 88.4 fL (83.0-99.0); MEAN PLATELET VOLUME 9.4 fL (9.4-12.4); MONOCYTES ABSOLUTE AUTO 1.19 K/uL (0.00-0.80); MONOCYTES PERCENT AUTO 6.7 % (0.0-8.0); NEUTROPHILS ABSOLUTE AUTO 15.33 K/uL (1.80-7.70); NEUTROPHILS PERCENT AUTO 85.8 % (41.0-71.0); PLATELET COUNT,PLT 236 K/uL (150-400); RED BLOOD CELL COUNT 3.19 M/uL (4.52-5.90); WHITE BLOOD CELL COUNT,WBC 17.86 K/uL (3.9-11.3)
[2023-09-01 06:48] LABS: CALCIUM 7.9 mg/dL (8.5-10.1); CARBON DIOXIDE,CO2 22.1 mmol/L (21.0-32.0); EST CRCL DRUG DOSING (CG) 26.62 mL/min; POTASSIUM,K 3.8 mmol/L (3.5-5.1)
[2023-09-01] MEDS ORDERED: cefTRIAXone 1 GM in Sodium Chloride 0.9% 50 ML IV SCH (09:00)
[2023-09-02 05:58] LABS: BASOPHILS ABSOLUTE AUTO 0.05 K/uL (0.00-0.20); BASOPHILS PERCENT AUTO 0.5 % (0.0-1.0); EOSINOPHILS ABSOLUTE AUTO 0.24 K/uL (0.00-0.45); EOSINOPHILS PERCENT AUTO 2.2 % (0.0-6.0); HEMATOCRIT 27.4 % (42.0-52.0); HEMOGLOBIN 9.7 g/dL (14.0-18.0); IMMATURE GRAN ABSOLUTE AUTO 0.04 K/uL (0.00-0.05); IMMATURE GRAN PERCENT AUTO 0.4 % (0.0-0.4); LYMPHOCYTES ABSOLUTE AUTO 1.19 K/uL (1.00-4.80); LYMPHOCYTES PERCENT AUTO 11.1 % (24.0-44.0); MEAN CORPUSCULAR HEMOGLOBIN 30.7 pg (28.0-32.0); MEAN CORPUSCULAR HGB CONC 35.4 g/dL (32.0-36.0); MEAN CORPUSCULAR VOLUME 86.7 fL (83.0-99.0); MEAN PLATELET VOLUME 9.2 fL (9.4-12.4); MONOCYTES ABSOLUTE AUTO 0.77 K/uL (0.00-0.80); MONOCYTES PERCENT AUTO 7.2 % (0.0-8.0); NEUTROPHILS ABSOLUTE AUTO 8.42 K/uL (1.80-7.70); NEUTROPHILS PERCENT AUTO 78.6 % (41.0-71.0); PLATELET COUNT,PLT 212 K/uL (150-400); RED BLOOD CELL COUNT 3.16 M/uL (4.52-5.90); WHITE BLOOD CELL COUNT,WBC 10.71 K/uL (3.9-11.3)
[2023-09-02 06:18] LABS: CARBON DIOXIDE,CO2 21.9 mmol/L (21.0-32.0); CREATININE 1.5 mg/dL (0.8-1.3); EST CRCL DRUG DOSING (CG) 35.5 mL/min; POTASSIUM,K 3.5 mmol/L (3.5-5.1)
[2023-09-02] MEDS: Losartan 50 MG Tab PO SCH (13:08)
[2023-09-03 06:47] LABS: BASOPHILS ABSOLUTE AUTO 0.04 K/uL (0.00-0.20); BASOPHILS PERCENT AUTO 0.4 % (0.0-1.0); EOSINOPHILS ABSOLUTE AUTO 0.35 K/uL (0.00-0.45); EOSINOPHILS PERCENT AUTO 3.3 % (0.0-6.0); HEMOGLOBIN 10.1 g/dL (14.0-18.0); IMMATURE GRAN ABSOLUTE AUTO 0.06 K/uL (0.00-0.05); IMMATURE GRAN PERCENT AUTO 0.6 % (0.0-0.4); LYMPHOCYTES PERCENT AUTO 11.3 % (24.0-44.0); MEAN CORPUSCULAR HEMOGLOBIN 31.2 pg (28.0-32.0); MEAN CORPUSCULAR HGB CONC 36.1 g/dL (32.0-36.0); MEAN CORPUSCULAR VOLUME 86.4 fL (83.0-99.0); MEAN PLATELET VOLUME 9.2 fL (9.4-12.4); MONOCYTES ABSOLUTE AUTO 0.87 K/uL (0.00-0.80); MONOCYTES PERCENT AUTO 8.2 % (0.0-8.0); NEUTROPHILS ABSOLUTE AUTO 8.11 K/uL (1.80-7.70); NEUTROPHILS PERCENT AUTO 76.2 % (41.0-71.0); PLATELET COUNT,PLT 222 K/uL (150-400); RED BLOOD CELL COUNT 3.24 M/uL (4.52-5.90); WHITE BLOOD CELL COUNT,WBC 10.63 K/uL (3.9-11.3)
[2023-09-03 07:07] LABS: CARBON DIOXIDE,CO2 25.3 mmol/L (21.0-32.0); CREATININE 1.3 mg/dL (0.8-1.3); EST CRCL DRUG DOSING (CG) 40.96 mL/min; POTASSIUM,K 3.4 mmol/L (3.5-5.1)
[2023-09-03] MEDS: Potassium Chloride 20 MEQ Tab.ER PO ONE (09:40)
[2023-09-03] MEDS ORDERED: Cefepime 1 GM in Sodium Chloride 0.9% 50 ML IV SCH (10:00)
== END 2023-09-03 11:45 | disposition home or self-care (01) | DRG 871 ==
LOC: MW.ED 11:40 → MW.ICU 16:40 → MW.MS 09-01 11:10
PROVIDERS: ADMIT Internal Medicine; ATTEND Internal Medicine
DX: A41.9 Sepsis, unspecified organism (principal); I10 Essential (primary) hypertension; G93.41 Metabolic encephalopathy; E87.1 Hypo-osmolality and hyponatremia; N17.9 Acute kidney failure, unspecified; Z95.5 Presence of coronary angioplasty implant and graft; N10 Acute pyelonephritis; R65.20 Severe sepsis without septic shock; I12.9 Hypertensive chronic kidney disease with stage 1 through stage 4 chronic kidney disease, or unspecified chronic kidney disease; N18.9 Chronic kidney disease, unspecified; R44.1 Visual hallucinations; I25.10 Atherosclerotic heart disease of native coronary artery without angina pectoris; E78.00 Pure hypercholesterolemia, unspecified; Z95.2 Presence of prosthetic heart valve; Z79.899 Other long term (current) drug therapy; I25.2 Old myocardial infarction; Z95.1 Presence of aortocoronary bypass graft
CPT/HCPCS: 36415; 70450; 71045; 80053; 83605; 83735; 84443; 84484; 85025; 87040 ×2; 96365; 96367; 99285; J2543; J3370; J3490; J7030 ×2; J7040; 74176; 74176-26; 80048; 80202; 81001; 82140; 87086; 87641; 93005; 93010; 99222; 99233; 99239; A9270-GY; C9113; J0692; J1650; J2405; J7050

== ENCOUNTER 2023-09-18 09:36 | Observation (INO) | payer OTHER, MEDICARE ==
[2023-09-18 10:50] LABS: BASOPHILS ABSOLUTE AUTO 0.03 K/uL (0.00-0.20); BASOPHILS PERCENT AUTO 0.2 % (0.0-1.0); EOSINOPHILS ABSOLUTE AUTO 0.01 K/uL (0.00-0.45); EOSINOPHILS PERCENT AUTO 0.1 % (0.0-6.0); HEMATOCRIT 32.6 % (42.0-52.0); HEMOGLOBIN 11.8 g/dL (14.0-18.0); IMMATURE GRAN ABSOLUTE AUTO 0.05 K/uL (0.00-0.05); IMMATURE GRAN PERCENT AUTO 0.4 % (0.0-0.4); LYMPHOCYTES ABSOLUTE AUTO 0.37 K/uL (1.00-4.80); LYMPHOCYTES PERCENT AUTO 2.6 % (24.0-44.0); MEAN CORPUSCULAR HEMOGLOBIN 31.1 pg (28.0-32.0); MEAN CORPUSCULAR HGB CONC 36.2 g/dL (32.0-36.0); MEAN CORPUSCULAR VOLUME 85.8 fL (83.0-99.0); MEAN PLATELET VOLUME 9.3 fL (9.4-12.4); MONOCYTES ABSOLUTE AUTO 0.39 K/uL (0.00-0.80); MONOCYTES PERCENT AUTO 2.8 % (0.0-8.0); NEUTROPHILS ABSOLUTE AUTO 13.28 K/uL (1.80-7.70); NEUTROPHILS PERCENT AUTO 93.9 % (41.0-71.0); PLATELET COUNT,PLT 336 K/uL (150-400); WHITE BLOOD CELL COUNT,WBC 14.13 K/uL (3.9-11.3)
[2023-09-18] MEDS: Sodium Chloride 0.9% 1,000 ML IV ONE (10:52)
[2023-09-18] MEDS: Ondansetron 4 MG/2 ML SDV IVPUSH ONE (10:53)
[2023-09-18] MEDS: Sodium Chloride 0.9% 2.5 ML Syringe FLUSH PRN (10:53)
[2023-09-18] MEDS: Sodium Chloride 0.9% 10 ML Syringe FLUSH PRN (10:53)
[2023-09-18 11:27] LABS: APPEARANCE,URINE CLEAR; BILIRUBIN,URINE NEGATIVE (NEGATIVE); COLOR,URINE YELLOW; GLUCOSE,URINE NEGATIVE (NEGATIVE); KETONES,URINE NEGATIVE (NEGATIVE); LEUKOCYTE ESTERASE,URINE NEGATIVE (NEGATIVE); NITRITE,URINE NEGATIVE (NEGATIVE); OCCULT BLOOD,URINE NEGATIVE (NEGATIVE); PROTEIN,URINE TRACE mg/dL (NEGATIVE); UROBILINOGEN,URINE 0.2 EU/dL (<2.0)
[2023-09-18 11:43] LABS: A/G RATIO 0.9 (0.9-1.6); ALBUMIN 3.6 g/dL (3.4-5.0); BILIRUBIN TOTAL 0.9 mg/dL (0.2-1.0); CALCIUM 9.6 mg/dL (8.5-10.1); CARBON DIOXIDE,CO2 25.3 mmol/L (21.0-32.0); CREATININE 1.2 mg/dL (0.8-1.3); EST CRCL DRUG DOSING (CG) 44.37 mL/min; MAGNESIUM 1.7 mg/dL (1.8-2.4); POTASSIUM,K 3.8 mmol/L (3.5-5.1); PROTEIN TOTAL,TP 7.4 g/dL (6.4-8.2)
[2023-09-18 11:47] LABS: BACTERIA,URINE RARE (NEGATIVE); EPITHELIAL CELLS,URINE RARE (NONE-FEW); RBC,URINE 0-1 (0-2/HPF); WBC,URINE 0-1 (0-5/HPF)
[2023-09-18 11:50] LABS: LACTIC ACID 1.2 mmol/L (0.4-2.0)
[2023-09-18] MEDS: Iopamidol 755 MG/ML 500 ML Multipack Bottle IVPUSH STA (12:13)
[2023-09-18 12:30] LABS: CORONAVIRUS COVID-19 NAA NEGATIVE (NEGATIVE); INFLUENZA A NAA NEGATIVE (NEGATIVE); INFLUENZA B NAA NEGATIVE (NEGATIVE); RESPIRATORY SYNCYTIAL VIR NAA NEGATIVE (NEGATIVE)
[2023-09-18] MEDS: Morphine 2 MG/ML SYRINGE IVPUSH ONE (12:49)
[2023-09-18] MEDS ORDERED: Docusate Sodium 100 MG Cap PO PRN (13:42)
[2023-09-18] MEDS ORDERED: Sodium Chloride 0.9% 2.5 ML Syringe FLUSH PRN (13:42)
[2023-09-18] MEDS ORDERED: Sodium Chloride 0.9% 10 ML Syringe FLUSH PRN (13:42)
[2023-09-18] MEDS ORDERED: Acetaminophen 325 MG Tab PO PRN (13:42)
[2023-09-18] MEDS ORDERED: Bisacodyl 10 MG Supp RECTAL PRN (14:18)
[2023-09-18] MEDS: Sodium Chloride 0.9% 1,000 ML IV SCH (14:40)
[2023-09-18] MEDS: Bisacodyl 10 MG Supp RECTAL ONE (14:41)
[2023-09-18] MEDS: Lidocaine 4% 1 each Patch TOP SCH (14:41)
[2023-09-18] MEDS: Pantoprazole 40 MG in Sodium Chloride 0.9% 10 ML IVPUSH ONE (14:41)
[2023-09-18] MEDS: Acetaminophen 325 MG Tab PO SCH (17:41)
[2023-09-18] MEDS: Ondansetron 4 MG/2 ML SDV IVPUSH PRN (17:42)
[2023-09-18] MEDS: atorvaSTATin 40 MG Tab PO SCH (20:49)
[2023-09-19 06:02] LABS: BASOPHILS ABSOLUTE AUTO 0.04 K/uL (0.00-0.20); BASOPHILS PERCENT AUTO 0.4 % (0.0-1.0); EOSINOPHILS ABSOLUTE AUTO 0.12 K/uL (0.00-0.45); EOSINOPHILS PERCENT AUTO 1.2 % (0.0-6.0); HEMATOCRIT 29.9 % (42.0-52.0); HEMOGLOBIN 10.5 g/dL (14.0-18.0); IMMATURE GRAN ABSOLUTE AUTO 0.06 K/uL (0.00-0.05); IMMATURE GRAN PERCENT AUTO 0.6 % (0.0-0.4); LYMPHOCYTES ABSOLUTE AUTO 1.18 K/uL (1.00-4.80); LYMPHOCYTES PERCENT AUTO 12.2 % (24.0-44.0); MEAN CORPUSCULAR HEMOGLOBIN 31.1 pg (28.0-32.0); MEAN CORPUSCULAR HGB CONC 35.1 g/dL (32.0-36.0); MEAN CORPUSCULAR VOLUME 88.5 fL (83.0-99.0); MEAN PLATELET VOLUME 9.4 fL (9.4-12.4); MONOCYTES ABSOLUTE AUTO 0.86 K/uL (0.00-0.80); MONOCYTES PERCENT AUTO 8.9 % (0.0-8.0); NEUTROPHILS PERCENT AUTO 76.7 % (41.0-71.0); PLATELET COUNT,PLT 270 K/uL (150-400); RED BLOOD CELL COUNT 3.38 M/uL (4.52-5.90); WHITE BLOOD CELL COUNT,WBC 9.66 K/uL (3.9-11.3)
[2023-09-19 06:27] LABS: CALCIUM 8.7 mg/dL (8.5-10.1); CARBON DIOXIDE,CO2 26.1 mmol/L (21.0-32.0); CREATININE 1.3 mg/dL (0.8-1.3); EST CRCL DRUG DOSING (CG) 40.96 mL/min; MAGNESIUM 1.8 mg/dL (1.8-2.4); POTASSIUM,K 4.1 mmol/L (3.5-5.1)
[2023-09-19] MEDS: Aspirin 81 MG Tab.Chew PO SCH (09:03)
[2023-09-19] MEDS: Losartan 50 MG Tab PO SCH (09:07)
[2023-09-19] MEDS: Clopidogrel 75 MG Tab PO SCH (09:10)
[2023-09-19] MEDS: Finasteride 5 MG Tab PO SCH (09:12)
[2023-09-19] MEDS: Tamsulosin 0.4 MG Cap.ER PO SCH (09:13)
== END 2023-09-19 14:00 | disposition home health service (06) ==
LOC: MW.ED 09:36 → MW.MS 13:24
PROVIDERS: ADMIT Internal Medicine; ATTEND Internal Medicine
DX: R53.1 Weakness (principal); E87.1 Hypo-osmolality and hyponatremia; K52.9 Noninfective gastroenteritis and colitis, unspecified; N39.0 Urinary tract infection, site not specified; M54.50 Low back pain, unspecified; K59.00 Constipation, unspecified; E78.00 Pure hypercholesterolemia, unspecified; N40.1 Benign prostatic hyperplasia with lower urinary tract symptoms; R33.8 Other retention of urine; G89.29 Other chronic pain; I10 Essential (primary) hypertension; S22.000S Wedge compression fracture of unspecified thoracic vertebra, sequela; S32.000S Wedge compression fracture of unspecified lumbar vertebra, sequela; Z95.2 Presence of prosthetic heart valve; Z79.02 Long term (current) use of antithrombotics/antiplatelets; Z95.1 Presence of aortocoronary bypass graft; Z79.899 Other long term (current) drug therapy
CPT/HCPCS: 0241U; 36415; 74177; 80048; 80053; 81001; 83605; 83690; 83735; 85025; 87040; 96361; 96374; 96375; 97161; 99285; A9270; C9113; J2270; J2405; J3490; J7030; Q9967; 96376; 99284; G0378

== ENCOUNTER 2023-11-15 14:21 | Emergency (ER) | payer OTHER ==
[2023-11-15 14:40] LABS: BASOPHILS ABSOLUTE AUTO 0.04 K/uL (0.00-0.20); BASOPHILS PERCENT AUTO 0.2 % (0.0-1.0); EOSINOPHILS ABSOLUTE AUTO 0.05 K/uL (0.00-0.45); EOSINOPHILS PERCENT AUTO 0.3 % (0.0-6.0); HEMATOCRIT 30.9 % (42.0-52.0); IMMATURE GRAN ABSOLUTE AUTO 0.07 K/uL (0.00-0.05); IMMATURE GRAN PERCENT AUTO 0.4 % (0.0-0.4); LYMPHOCYTES ABSOLUTE AUTO 0.81 K/uL (1.00-4.80); LYMPHOCYTES PERCENT AUTO 4.9 % (24.0-44.0); MEAN CORPUSCULAR HEMOGLOBIN 30.6 pg (28.0-32.0); MEAN CORPUSCULAR HGB CONC 35.6 g/dL (32.0-36.0); MEAN CORPUSCULAR VOLUME 86.1 fL (83.0-99.0); MEAN PLATELET VOLUME 9.2 fL (9.4-12.4); MONOCYTES ABSOLUTE AUTO 0.64 K/uL (0.00-0.80); MONOCYTES PERCENT AUTO 3.9 % (0.0-8.0); NEUTROPHILS PERCENT AUTO 90.3 % (41.0-71.0); PLATELET COUNT,PLT 336 K/uL (150-400); RED BLOOD CELL COUNT 3.59 M/uL (4.52-5.90); WHITE BLOOD CELL COUNT,WBC 16.41 K/uL (3.9-11.3)
[2023-11-15] MEDS: Acetaminophen 500 MG Tab PO ONE (14:46)
[2023-11-15] MEDS: Sodium Chloride 0.9% 2.5 ML Syringe FLUSH PRN (14:50)
[2023-11-15] MEDS: Sodium Chloride 0.9% 10 ML Syringe FLUSH PRN (14:50)
[2023-11-15] MEDS: Ondansetron 4 MG/2 ML SDV IVPUSH ONE ×2 (15:00→16:23)
[2023-11-15 15:13] LABS: A/G RATIO 1.2 (0.9-1.6); ALBUMIN 3.8 g/dL (3.4-5.0); BILIRUBIN TOTAL 0.7 mg/dL (0.2-1.0); CALCIUM 9.1 mg/dL (8.5-10.1); CARBON DIOXIDE,CO2 24.8 mmol/L (21.0-32.0); CREATININE 1.3 mg/dL (0.8-1.3); EST CRCL DRUG DOSING (CG) 36.93 mL/min; POTASSIUM,K 3.8 mmol/L (3.5-5.1)
[2023-11-15 16:02] LABS: APPEARANCE,URINE CLEAR; BILIRUBIN,URINE NEGATIVE (NEGATIVE); COLOR,URINE YELLOW; GLUCOSE,URINE NEGATIVE (NEGATIVE); KETONES,URINE NEGATIVE (NEGATIVE); LEUKOCYTE ESTERASE,URINE NEGATIVE (NEGATIVE); NITRITE,URINE NEGATIVE (NEGATIVE); OCCULT BLOOD,URINE NEGATIVE (NEGATIVE); PH,URINE 7.5 (5.0-8.0); PROTEIN,URINE NEGATIVE (NEGATIVE); UROBILINOGEN,URINE 0.2 EU/dL (<2.0)
[2023-11-15] MEDS: Famotidine 20 MG/2 ML SDV IVPUSH ONE (16:24)
== END 2023-11-15 18:13 | disposition home or self-care (01) ==
LOC: MW.ED 14:21
DX: S22.089A Unspecified fracture of T11-T12 vertebra, initial encounter for closed fracture (principal); S32.029A Unspecified fracture of second lumbar vertebra, initial encounter for closed fracture; I10 Essential (primary) hypertension; E78.00 Pure hypercholesterolemia, unspecified; Z79.899 Other long term (current) drug therapy; Z79.82 Long term (current) use of aspirin; Z86.19 Personal history of other infectious and parasitic diseases; Z75.8 Other problems related to medical facilities and other health care; X58.XXXA Exposure to other specified factors, initial encounter
CPT/HCPCS: 36415; 71045; 74176; 80053; 81003; 84484; 85025; 93005; 96374; 96375; 96376; 99285; A9270; J2405; J3490; 93010; 99284

== ENCOUNTER 2024-01-20 08:48 | Emergency (ER) | payer OTHER ==
[2024-01-20] MEDS: Sodium Chloride 0.9% 2.5 ML Syringe FLUSH PRN (09:21)
[2024-01-20] MEDS: Sodium Chloride 0.9% 10 ML Syringe FLUSH PRN (09:22)
[2024-01-20 09:35] LABS: BASOPHILS ABSOLUTE AUTO 0.04 K/uL (0.00-0.20); BASOPHILS PERCENT AUTO 0.2 % (0.0-1.0); EOSINOPHILS ABSOLUTE AUTO 0.01 K/uL (0.00-0.45); EOSINOPHILS PERCENT AUTO 0.1 % (0.0-6.0); HEMOGLOBIN 5.4 g/dL (14.0-18.0); IMMATURE GRAN PERCENT AUTO 0.6 % (0.0-0.4); LYMPHOCYTES ABSOLUTE AUTO 0.93 K/uL (1.00-4.80); LYMPHOCYTES PERCENT AUTO 5.2 % (24.0-44.0); MEAN CORPUSCULAR HGB CONC 31.8 g/dL (32.0-36.0); MEAN CORPUSCULAR VOLUME 91.4 fL (83.0-99.0); MEAN PLATELET VOLUME 10.2 fL (9.4-12.4); MONOCYTES ABSOLUTE AUTO 0.61 K/uL (0.00-0.80); MONOCYTES PERCENT AUTO 3.4 % (0.0-8.0); NEUTROPHILS ABSOLUTE AUTO 16.36 K/uL (1.80-7.70); NEUTROPHILS PERCENT AUTO 90.5 % (41.0-71.0); PLATELET COUNT,PLT 244 K/uL (150-400); RED BLOOD CELL COUNT 1.86 M/uL (4.52-5.90); WHITE BLOOD CELL COUNT,WBC 18.05 K/uL (3.9-11.3)
[2024-01-20] MEDS: Sodium Chloride 0.9% 1,000 ML IV STA (09:43)
[2024-01-20 09:46] LABS: INR 1.14 (0.86-1.11)
[2024-01-20] MEDS: Pantoprazole 80 MG in Sodium Chloride 0.9% 10 ML IVPUSH ONE (09:53)
[2024-01-20 09:56] LABS: A/G RATIO 1.3 (0.9-1.6); ALBUMIN 3.2 g/dL (3.4-5.0); BILIRUBIN TOTAL 0.4 mg/dL (0.2-1.0); CALCIUM 8.9 mg/dL (8.5-10.1); CARBON DIOXIDE,CO2 22.2 mmol/L (21.0-32.0); CREATININE 1.8 mg/dL (0.8-1.3); EST CRCL DRUG DOSING (CG) 26.49 mL/min; POTASSIUM,K 4.4 mmol/L (3.5-5.1); PROTEIN TOTAL,TP 5.6 g/dL (6.4-8.2)
== END 2024-01-20 13:07 ==
LOC: MW.ED 08:48
DX: K92.2 Gastrointestinal hemorrhage, unspecified (principal); I95.9 Hypotension, unspecified; E78.00 Pure hypercholesterolemia, unspecified; Z95.1 Presence of aortocoronary bypass graft; Z79.899 Other long term (current) drug therapy; Z79.82 Long term (current) use of aspirin; Z75.8 Other problems related to medical facilities and other health care; Z79.02 Long term (current) use of antithrombotics/antiplatelets
CPT/HCPCS: 36415; 36430; 74176; 80053; 83605; 83690; 85025; 85610; 86850; 86900; 86901; 86920; 96361; 96374; 99285; C9113; J3490; J7030; P9016; 99283

== ENCOUNTER 2024-03-29 20:37 | Emergency (ER) | payer OTHER ==
[2024-03-29] MEDS ORDERED: Sodium Chloride 0.9% 20 ML SDV IV PRN (20:41)
[2024-03-29] MEDS ORDERED: Sodium Chloride 0.9% 10 ML Syringe FLUSH PRN (20:41)
[2024-03-29] MEDS ORDERED: Sodium Chloride 0.9% 2.5 ML Syringe FLUSH PRN (20:41)
[2024-03-29] MEDS: Iopamidol 755 MG/ML 500 ML Multipack Bottle IVPUSH ONE (20:45)
[2024-03-29 21:23] LABS: BASOPHILS ABSOLUTE AUTO 0.03 K/uL (0.00-0.20); BASOPHILS PERCENT AUTO 0.1 % (0.0-1.0); HEMATOCRIT 37.5 % (42.0-52.0); HEMOGLOBIN 12.5 g/dL (14.0-18.0); IMMATURE GRAN ABSOLUTE AUTO 0.19 K/uL (0.00-0.05); IMMATURE GRAN PERCENT AUTO 0.8 % (0.0-0.4); LYMPHOCYTES ABSOLUTE AUTO 0.59 K/uL (1.00-4.80); LYMPHOCYTES PERCENT AUTO 2.3 % (24.0-44.0); MEAN CORPUSCULAR HEMOGLOBIN 28.3 pg (28.0-32.0); MEAN CORPUSCULAR HGB CONC 33.3 g/dL (32.0-36.0); MEAN CORPUSCULAR VOLUME 84.8 fL (83.0-99.0); MEAN PLATELET VOLUME 9.6 fL (9.4-12.4); MONOCYTES ABSOLUTE AUTO 0.47 K/uL (0.00-0.80); MONOCYTES PERCENT AUTO 1.9 % (0.0-8.0); NEUTROPHILS ABSOLUTE AUTO 23.83 K/uL (1.80-7.70); NEUTROPHILS PERCENT AUTO 94.9 % (41.0-71.0); PLATELET COUNT,PLT 265 K/uL (150-400); RED BLOOD CELL COUNT 4.42 M/uL (4.52-5.90); WHITE BLOOD CELL COUNT,WBC 25.11 K/uL (3.9-11.3)
[2024-03-29 21:59] LABS: A/G RATIO 1.1 (0.9-1.6); BILIRUBIN TOTAL 0.6 mg/dL (0.2-1.0); CALCIUM 9.1 mg/dL (8.5-10.1); CARBON DIOXIDE,CO2 25.1 mmol/L (21.0-32.0); CREATININE 1.5 mg/dL (0.8-1.3); EST CRCL DRUG DOSING (CG) 33.25 mL/min; POTASSIUM,K 3.7 mmol/L (3.5-5.1); PROTEIN TOTAL,TP 7.6 g/dL (6.4-8.2)
[2024-03-29 22:18] LABS: INR 1.1 (0.86-1.11); PTT,PARTIAL THROMBOPLSTIN TIME 28.6 SEC (23.9-30.7)
[2024-03-29 22:19] LABS: APPEARANCE,URINE SLT CLOUDY; BILIRUBIN,URINE NEGATIVE (NEGATIVE); COLOR,URINE YELLOW; GLUCOSE,URINE NEGATIVE (NEGATIVE); KETONES,URINE 15 mg/dL (NEGATIVE); LEUKOCYTE ESTERASE,URINE NEGATIVE (NEGATIVE); NITRITE,URINE NEGATIVE (NEGATIVE); OCCULT BLOOD,URINE LARGE (NEGATIVE); PROTEIN,URINE 100 mg/dL (NEGATIVE); UROBILINOGEN,URINE 0.2 EU/dL (<2.0)
[2024-03-29 22:27] LABS: BACTERIA,URINE 1+ (NEGATIVE); EPITHELIAL CELLS,URINE RARE (NONE-FEW); WBC,URINE 0-3 (0-5/HPF)
[2024-03-29] MEDS: Aspirin 300 MG Supp RECTAL STA (22:31)
[2024-03-29 22:39] LABS: AMPHETAMINES SCREEN, URINE NEGATIVE (CUTOFF=500); BARBITURATE SCREEN,URINE NEGATIVE (CUTOFF=200); BENZODIAZEPINES SCREEN,URINE NEGATIVE (CUTOFF=150); BUPRENORPHINE SCREEN,URINE NEGATIVE (CUTOFF=10); METHADONE SCREEN, URINE NEGATIVE (CUTOFF=200); METHAMPHETAMINES SCREEN, URINE NEGATIVE (CUTOFF=500); OXYCODONE SCREEN,URINE NEGATIVE (CUT0FF=100); PCP SCREEN,URINE NEGATIVE (CUTOFF=25); THC SCREEN,URINE 20 NG/ML NEGATIVE (CUTOFF=50)
[2024-03-29] MEDS: cefTRIAXone 2 GM in Sodium Chloride 0.9% 50 ML IV ONE (23:03)
[2024-03-29] MEDS: Sodium Chloride 0.9% 1,000 ML IV ONE (23:49)
[2024-03-29 23:54] LABS: LACTIC ACID 1.9 mmol/L (0.4-2.0)
[2024-03-29 23:59] LABS: CORONAVIRUS COVID-19 NAA NEGATIVE (NEGATIVE); INFLUENZA A NAA NEGATIVE (NEGATIVE); INFLUENZA B NAA NEGATIVE (NEGATIVE); RESPIRATORY SYNCYTIAL VIR NAA NEGATIVE (NEGATIVE)
== END 2024-03-30 00:56 ==
LOC: MW.ED 20:37
DX: A41.9 Sepsis, unspecified organism (principal); I21.4 Non-ST elevation (NSTEMI) myocardial infarction; R41.0 Disorientation, unspecified; Z75.8 Other problems related to medical facilities and other health care; I10 Essential (primary) hypertension; E78.00 Pure hypercholesterolemia, unspecified; Z95.1 Presence of aortocoronary bypass graft
CPT/HCPCS: 0241U; 36415; 51702; 70450; 70496; 70498; 71045; 80053; 80305; 80307; 81001; 83605; 84484; 85025; 85610; 85730; 87040; 93005; 96361; 96365; 99285; A9270; J0696; J3490; J7030; Q9967; 93010

== ENCOUNTER 2024-10-03 10:11 | Inpatient (IN) | payer OTHER, MEDICARE ==
[2024-10-03] MEDS ORDERED: cefTRIAXone 2 GM in Sodium Chloride 0.9% 50 ML IV ONE (10:27)
[2024-10-03 10:38] LABS: HEMATOCRIT 31.7 % (42.0-52.0); HEMOGLOBIN 10.8 g/dL (14.0-18.0); MEAN CORPUSCULAR HEMOGLOBIN 29.8 pg (28.0-32.0); MEAN CORPUSCULAR HGB CONC 34.1 g/dL (32.0-36.0); MEAN CORPUSCULAR VOLUME 87.6 fL (83.0-99.0); MEAN PLATELET VOLUME 10.2 fL (9.4-12.4); PLATELET COUNT,PLT 252 K/uL (150-400); RED BLOOD CELL COUNT 3.62 M/uL (4.52-5.90); WHITE BLOOD CELL COUNT,WBC 27.83 K/uL (3.9-11.3)
[2024-10-03] MEDS: Sodium Chloride 0.9% 1,000 ML IV ONE ×3 (11:00→11:41)
[2024-10-03] MEDS: Piperacillin/Tazobactam 3.375 GM in Sodium Chloride 0.9% 100 ML IV ONE (11:01)
[2024-10-03 11:14] LABS: INR 1.34 (0.86-1.11)
[2024-10-03 11:22] LABS: A/G RATIO 0.7 (0.9-1.6); ALANINE AMINOTRANSFERASE,ALT 19 IU/L (14-63); ALBUMIN 2.9 g/dL (3.4-5.0); ALKALINE PHOSPHATASE 72 U/L (46-116); ASPARTATE AMNIOTRANSFERASE,AST 16 IU/L (15-37); BILIRUBIN TOTAL 1.1 mg/dL (0.2-1.0); BLOOD UREA NITROGEN,BUN 58 mg/dL (7.0-18.0); CALCIUM 9.1 mg/dL (8.5-10.1); CARBON DIOXIDE,CO2 23.9 mmol/L (21.0-32.0); CHLORIDE,CL 101 mmol/L (98-107); CHOLESTEROL HDL 65 mg/dL (40-60); CHOLESTEROL LDL CALCULATED 32 mg/dL (60-180); CHOLESTEROL TOTAL 107 mg/dL (50-200); CREATININE 2.1 mg/dL (0.8-1.3); GLUCOSE RANDOM 152 mg/dL (74-106); LIPASE 14 U/L (16-77); MAGNESIUM 2.3 mg/dL (1.8-2.4); POTASSIUM,K 3.9 mmol/L (3.5-5.1); PRO B-TYPE NATRIUR PEPT,BNPPRO 11960 pg/mL (0-450); PROTEIN TOTAL,TP 6.9 g/dL (6.4-8.2); SODIUM,NA 136 mmol/L (136-148); TRIGLYCERIDES 51 mg/dL (0-200); VLDL CHOLESTEROL 10 mg/dL (5-55)
[2024-10-03 11:24] LABS: ESTIMATED GFR 31 mL/min (>60)
[2024-10-03] MEDS ORDERED: Norepinephrine Bit/D5W Premix 250 ML IV SCH (11:30)
[2024-10-03 11:33] LABS: LYMPHOCYTES ABSOLUTE MAN 1.95 K/uL (1.00-4.80); LYMPHOCYTES PERCENT MAN 7 % (24-44); MONOCYTES PERCENT MAN 9 % (0-8); SEG NEUTROPHILS ABSOLUTE MAN 23.38 K/uL (1.80-7.70); SEG NEUTROPHILS PERCENT MAN 84 % (41-71)
[2024-10-03 12:30] LABS: APPEARANCE,URINE SLT CLOUDY; BILIRUBIN,URINE NEGATIVE (NEGATIVE); COLOR,URINE YELLOW; GLUCOSE,URINE NEGATIVE (NEGATIVE); KETONES,URINE TRACE mg/dL (NEGATIVE); LEUKOCYTE ESTERASE,URINE SMALL (NEGATIVE); NITRITE,URINE NEGATIVE (NEGATIVE); OCCULT BLOOD,URINE SMALL (NEGATIVE); PH,URINE 5.5 (5.0-8.0); PROTEIN,URINE >=300 mg/dL (NEGATIVE); UROBILINOGEN,URINE 0.2 EU/dL (<2.0)
[2024-10-03 12:31] LABS: CORONAVIRUS COVID-19 NAA NEGATIVE (NEGATIVE); INFLUENZA A NAA NEGATIVE (NEGATIVE); INFLUENZA B NAA NEGATIVE (NEGATIVE); RESPIRATORY SYNCYTIAL VIR NAA NEGATIVE (NEGATIVE)
[2024-10-03] MEDS: VANCOmycin 1.5 GM in Sodium Chloride 0.9% 250 ML IV ONE (12:40)
[2024-10-03 12:49] LABS: BACTERIA,URINE 3+ (NEGATIVE); EPITHELIAL CELLS,URINE FEW (NONE-FEW); RBC,URINE 0-2 (0-2/HPF); WBC,URINE 50-60 (0-5/HPF)
[2024-10-03] MEDS ORDERED: Polyethylene Glycol 3350 Powder 17 GM Packet PO PRN (15:51)
[2024-10-03] MEDS ORDERED: LORazepam 2 MG/ML SDV IVPUSH PRN (15:54)
[2024-10-03] MEDS: Pantoprazole 40 MG Tab.CR PO SCH (18:20)
[2024-10-03] MEDS: cefTRIAXone 1 GM in Sodium Chloride 0.9% 50 ML IV SCH (18:20)
[2024-10-03] MEDS: Sodium Chloride 0.9% 1,000 ML IV SCH (18:20)
[2024-10-03] MEDS: Azithromycin 500 MG in Sodium Chloride 0.9% 250 ML IV SCH (18:20)
[2024-10-03] MEDS ORDERED: Metoprolol Tartrate 5 MG/5 ML SDV IVPUSH PRN (20:41)
[2024-10-03] MEDS: Acetaminophen 325 MG Tab PO PRN (20:50)
[2024-10-03] MEDS: Apixaban 5 MG Tab PO SCH (20:50)
[2024-10-03] MEDS: atorvaSTATin 40 MG Tab PO SCH (20:50)
[2024-10-03] MEDS: QUEtiapine 25 MG Tab PO SCH (20:51)
[2024-10-03] MEDS: guaiFENesin 600 MG Tab.ER PO SCH (22:27)
[2024-10-04 06:12] LABS: BASOPHILS ABSOLUTE AUTO 0.03 K/uL (0.00-0.20); BASOPHILS PERCENT AUTO 0.2 % (0.0-1.0); EOSINOPHILS ABSOLUTE AUTO 0.03 K/uL (0.00-0.45); EOSINOPHILS PERCENT AUTO 0.2 % (0.0-6.0); HEMATOCRIT 25.4 % (42.0-52.0); HEMOGLOBIN 8.4 g/dL (14.0-18.0); IMMATURE GRAN ABSOLUTE AUTO 0.16 K/uL (0.00-0.05); LYMPHOCYTES ABSOLUTE AUTO 1.21 K/uL (1.00-4.80); LYMPHOCYTES PERCENT AUTO 7.4 % (24.0-44.0); MEAN CORPUSCULAR HEMOGLOBIN 29.2 pg (28.0-32.0); MEAN CORPUSCULAR HGB CONC 33.1 g/dL (32.0-36.0); MEAN CORPUSCULAR VOLUME 88.2 fL (83.0-99.0); MEAN PLATELET VOLUME 10.6 fL (9.4-12.4); MONOCYTES ABSOLUTE AUTO 1.07 K/uL (0.00-0.80); MONOCYTES PERCENT AUTO 6.5 % (0.0-8.0); NEUTROPHILS ABSOLUTE AUTO 13.95 K/uL (1.80-7.70); NEUTROPHILS PERCENT AUTO 84.7 % (41.0-71.0); PLATELET COUNT,PLT 207 K/uL (150-400); RED BLOOD CELL COUNT 2.88 M/uL (4.52-5.90); WHITE BLOOD CELL COUNT,WBC 16.45 K/uL (3.9-11.3)
[2024-10-04 06:35] LABS: A/G RATIO 0.7 (0.9-1.6); ALBUMIN 2.3 g/dL (3.4-5.0); BILIRUBIN TOTAL 0.9 mg/dL (0.2-1.0); CARBON DIOXIDE,CO2 20.9 mmol/L (21.0-32.0); CREATININE 1.8 mg/dL (0.8-1.3); MAGNESIUM 2.4 mg/dL (1.8-2.4); POTASSIUM,K 3.4 mmol/L (3.5-5.1); PROTEIN TOTAL,TP 5.5 g/dL (6.4-8.2)
[2024-10-04] MEDS: Tamsulosin 0.4 MG Cap.ER PO SCH (09:26)
[2024-10-04] MEDS: Cholecalciferol (Vitamin D3) 25 MCG Tab PO SCH (09:26)
[2024-10-04] MEDS: Finasteride 5 MG Tab PO SCH (09:26)
[2024-10-04] MEDS: Aspirin 81 MG Tab.EC PO SCH (09:27)
[2024-10-04] MEDS: Losartan 50 MG Tab PO SCH (10:35)
[2024-10-04] MEDS: Sodium Chloride 0.9% 1,000 ML IV ONE (12:03)
[2024-10-04] MEDS: Potassium Chloride 20 MEQ Tab.ER PO ONE (12:03)
[2024-10-04] MEDS: Furosemide 20 MG/2 ML VIAL IVPUSH ONE (19:43)
[2024-10-04] MEDS: Apixaban 5 MG Tab PO SCH (21:09)
[2024-10-05 05:48] LABS: BASOPHILS ABSOLUTE AUTO 0.04 K/uL (0.00-0.20); BASOPHILS PERCENT AUTO 0.4 % (0.0-1.0); EOSINOPHILS ABSOLUTE AUTO 0.22 K/uL (0.00-0.45); EOSINOPHILS PERCENT AUTO 2.2 % (0.0-6.0); HEMATOCRIT 24.6 % (42.0-52.0); HEMOGLOBIN 8.2 g/dL (14.0-18.0); IMMATURE GRAN ABSOLUTE AUTO 0.05 K/uL (0.00-0.05); IMMATURE GRAN PERCENT AUTO 0.5 % (0.0-0.4); LYMPHOCYTES ABSOLUTE AUTO 1.33 K/uL (1.00-4.80); LYMPHOCYTES PERCENT AUTO 13.3 % (24.0-44.0); MEAN CORPUSCULAR HEMOGLOBIN 29.5 pg (28.0-32.0); MEAN CORPUSCULAR HGB CONC 33.3 g/dL (32.0-36.0); MEAN CORPUSCULAR VOLUME 88.5 fL (83.0-99.0); MONOCYTES ABSOLUTE AUTO 0.71 K/uL (0.00-0.80); MONOCYTES PERCENT AUTO 7.1 % (0.0-8.0); NEUTROPHILS ABSOLUTE AUTO 7.68 K/uL (1.80-7.70); NEUTROPHILS PERCENT AUTO 76.5 % (41.0-71.0); PLATELET COUNT,PLT 225 K/uL (150-400); RED BLOOD CELL COUNT 2.78 M/uL (4.52-5.90); WHITE BLOOD CELL COUNT,WBC 10.03 K/uL (3.9-11.3)
[2024-10-05 06:14] LABS: ALBUMIN 2.2 g/dL (3.4-5.0); BILIRUBIN TOTAL 0.6 mg/dL (0.2-1.0); CARBON DIOXIDE,CO2 20.6 mmol/L (21.0-32.0); CREATININE 1.4 mg/dL (0.8-1.3); EST CRCL DRUG DOSING (CG) 29.57 mL/min; POTASSIUM,K 3.5 mmol/L (3.5-5.1); PROTEIN TOTAL,TP 5.6 g/dL (6.4-8.2)
[2024-10-05 06:32] LABS: A/G RATIO 0.7 (0.9-1.6)
== END 2024-10-05 16:50 | disposition home or self-care (01) | DRG 699 ==
LOC: MW.ED 10:11 → MW.MS 13:33
PROVIDERS: ADMIT Family Medicine; ATTEND Family Medicine
DX: A41.9 Sepsis, unspecified organism (principal); N39.0 Urinary tract infection, site not specified; I95.9 Hypotension, unspecified; T83.518A Infection and inflammatory reaction due to other urinary catheter, initial encounter; N10 Acute pyelonephritis; N30.00 Acute cystitis without hematuria; N17.9 Acute kidney failure, unspecified; N40.1 Benign prostatic hyperplasia with lower urinary tract symptoms; H54.7 Unspecified visual loss; E78.00 Pure hypercholesterolemia, unspecified; G89.29 Other chronic pain; M54.9 Dorsalgia, unspecified; D72.829 Elevated white blood cell count, unspecified; K20.90 Esophagitis, unspecified without bleeding; N18.9 Chronic kidney disease, unspecified; I12.9 Hypertensive chronic kidney disease with stage 1 through stage 4 chronic kidney disease, or unspecified chronic kidney disease; I48.0 Paroxysmal atrial fibrillation; Z95.2 Presence of prosthetic heart valve; Z79.1 Long term (current) use of non-steroidal anti-inflammatories (NSAID); Z79.01 Long term (current) use of anticoagulants; Z79.82 Long term (current) use of aspirin; Z79.02 Long term (current) use of antithrombotics/antiplatelets; Z95.5 Presence of coronary angioplasty implant and graft; Z87.81 Personal history of (healed) traumatic fracture; Z90.49 Acquired absence of other specified parts of digestive tract; Z98.890 Other specified postprocedural states; Z79.899 Other long term (current) drug therapy; Z87.891 Personal history of nicotine dependence
CPT/HCPCS: 0241U; 36415; 51798; 70450; 71045; 71250; 74176; 80053; 80061; 81001; 83605; 83690; 83735; 83880; 84484; 85025; 85610; 87040; 87086; 93005; 93010; 99222; 99232; 99239; 99285; A9270-GY; J0456; J0696; J1940; J2543; J3371; J7030; J7050